=== PATIENT | male | born 1955 | race Caucasian/White ===

== ENCOUNTER 2023-11-25 10:05 | Outpatient (RCR) | payer OTHER, SELFPAY ==
[2023-11-11 10:17] VITALS: BP 122/74
[2023-11-11 11:37] LABS: % Basophils 0.9 % (0-2); % Eosinophils 0.3 % (0-6); % Immature Granulocytes 0.3 % (0-0.5); % Lymphocytes 31.5 % (20.5-51.1); % Monocytes 17.1 % (1.7-9.3); % Neutrophils 49.9 % (42.2-75.2); Absolute Monocytes 0.6 10^3/uL (0.1-0.6); Absolute Neutrophils 1.6 10^3/uL (1.4-6.5); Hematocrit 30.5 % (39.0-52.0); Hemoglobin 11.2 g/dL (13.0-18.0); Mean Corp Hgb Conc. 36.7 g/dL (33.0-37.0); Mean Corpuscular Hgb 38.4 pg (27.0-31.0); Mean Corpuscular Volume 104.5 fL (80.0-94.0); Mean Platelet Volume 9.1 fL (7.4-10.4); Nucleated Red Blood Cells % 0 % (-); Platelet Count 256 10^3/uL (130-400); Red Blood Cell Count 2.92 10^6/uL (4.70-6.10); Red Cell Dist. Width 13.1 % (11.5-14.5); White Blood Cell Count 3.2 10^3/uL (4.8-10.8)
[2023-11-11 11:57] LABS: ALT (SGPT) 16 U/L (0-50); AST (SGOT) 19 U/L (17-59); Albumin 3.8 g/dl (3.5-5.0); Alkaline Phosphatase 75 U/L (38-126); Blood Urea Nitrogen 20 mg/dl (9-20); Carbon Dioxide 31 mmol/L (22-30); Chloride 100 mmol/L (98-107); Glucose 226 mg/dl (70-99); Potassium 3.8 mmol/L (3.5-5.1); Sodium 134 mmol/L (135-145); Total Bilirubin 1.1 mg/dl (0.2-1.3); Total Protein 6.2 g/dl (6.3-8.2); eGFR > 60.00
[2023-11-18 10:01] VITALS: BP 126/80
[2023-11-18 11:04] LABS: % Basophils 0.2 % (0-2); % Eosinophils 1.3 % (0-6); % Immature Granulocytes 0.9 % (0-0.5); % Lymphocytes 20.7 % (20.5-51.1); % Monocytes 12.9 % (1.7-9.3); Absolute Eosinophils 0.1 10^3/uL (0-0.7); Absolute Monocytes 0.6 10^3/uL (0.1-0.6); Absolute Neutrophils 2.9 10^3/uL (1.4-6.5); Hematocrit 31.6 % (39.0-52.0); Hemoglobin 11.5 g/dL (13.0-18.0); Mean Corp Hgb Conc. 36.4 g/dL (33.0-37.0); Mean Corpuscular Hgb 38.3 pg (27.0-31.0); Mean Corpuscular Volume 105.3 fL (80.0-94.0); Nucleated Red Blood Cells % 0 % (-); Red Cell Dist. Width 12.7 % (11.5-14.5); White Blood Cell Count 4.6 10^3/uL (4.8-10.8)
[2023-11-18 11:25] LABS: ALT (SGPT) 14 U/L (0-50); AST (SGOT) 19 U/L (17-59); Albumin 3.7 g/dl (3.5-5.0); Alkaline Phosphatase 79 U/L (38-126); Blood Urea Nitrogen 24 mg/dl (9-20); Calcium 9.1 mg/dl (8.4-10.2); Carbon Dioxide 31 mmol/L (22-30); Chloride 100 mmol/L (98-107); Glucose 215 mg/dl (70-99); Potassium 3.9 mmol/L (3.5-5.1); Sodium 133 mmol/L (135-145); Total Bilirubin 0.9 mg/dl (0.2-1.3); Total Protein 6.3 g/dl (6.3-8.2); eGFR > 60.00
[2023-11-18 12:15] LABS: Mean Platelet Volume 10.4 fL (7.4-10.4); Platelet Count 103 10^3/uL (130-400)
[2023-11-25 10:25] VITALS: BP 141/82
[2023-11-25 11:06] LABS: Hematocrit 32.2 % (39.0-52.0); Hemoglobin 11.6 g/dL (13.0-18.0); Mean Corpuscular Hgb 37.2 pg (27.0-31.0); Mean Corpuscular Volume 103.2 fL (80.0-94.0); Mean Platelet Volume 10.3 fL (7.4-10.4); Platelet Count 99 10^3/uL (130-400); Red Blood Cell Count 3.12 10^6/uL (4.70-6.10); Red Cell Dist. Width 12.9 % (11.5-14.5)
[2023-11-25 11:10] LABS: Nucleated Red Blood Cells % 0 % (-)
[2023-11-25 11:15] LABS: ALT (SGPT) 15 U/L (0-50); AST (SGOT) 16 U/L (17-59); Albumin 3.7 g/dl (3.5-5.0); Alkaline Phosphatase 82 U/L (38-126); Blood Urea Nitrogen 24 mg/dl (9-20); Calcium 9.3 mg/dl (8.4-10.2); Carbon Dioxide 31 mmol/L (22-30); Chloride 99 mmol/L (98-107); Glucose 202 mg/dl (70-99); Potassium 3.8 mmol/L (3.5-5.1); Sodium 134 mmol/L (135-145); Total Protein 6.2 g/dl (6.3-8.2); eGFR > 60.00
[2023-11-25 11:56] LABS: Absolute Neutrophils -Man Diff 3.4 10^3/uL (1.4-6.5); Band Neutrophils 2 % (0-3); Eosinophils 2 % (0-6); Lymphocytes 18 % (20-51); Monocytes 11 % (2-9); Segmented Neutrophils 67 % (42-75)
[2023-11-25 11:57] LABS: Normal RBC Morphology Yes; Platelets Checked Yes; Total Cells Counted 100
== END 2023-11-26 08:13 | disposition home or self-care (01) ==
LOC: OID 10:05
PROVIDERS: ATTENDING PHYSICIAN Internal Medicine Hematology & Oncology; FAMILY PHYSICIAN Family Medicine
DX: C90.00 Multiple myeloma not having achieved remission (principal); F63.0 Pathological gambling; D64.81 Anemia due to antineoplastic chemotherapy; M85.80 Other specified disorders of bone density and structure, unspecified site; D63.0 Anemia in neoplastic disease
CPT/HCPCS: 36591; 80053; 85025

== ENCOUNTER → 2023-12-11 10:03 | Outpatient (REF) | payer OTHER, SELFPAY ==
[2023-12-11 09:54] LABS: % Basophils 0.9 % (0-2); % Eosinophils 0.3 % (0-6); % Lymphocytes 25.4 % (20.5-51.1); % Monocytes 17.8 % (1.7-9.3); % Neutrophils 55.6 % (42.2-75.2); Absolute Lymphocytes 0.8 10^3/uL (1.2-3.4); Absolute Monocytes 0.6 10^3/uL (0.1-0.6); Absolute Neutrophils 1.8 10^3/uL (1.4-6.5); Hematocrit 32.5 % (39.0-52.0); Hemoglobin 11.4 g/dL (13.0-18.0); Mean Corp Hgb Conc. 35.1 g/dL (33.0-37.0); Mean Corpuscular Hgb 38.3 pg (27.0-31.0); Mean Corpuscular Volume 109.1 fL (80.0-94.0); Mean Platelet Volume 8.9 fL (7.4-10.4); Platelet Count 256 10^3/uL (130-400); Red Blood Cell Count 2.98 10^6/uL (4.70-6.10); Red Cell Dist. Width 13.2 % (11.5-14.5); White Blood Cell Count 3.3 10^3/uL (4.8-10.8)
== END ==
LOC: OIDL 10:03
PROVIDERS: ATTENDING PHYSICIAN Internal Medicine Hematology & Oncology
DX: C90.00 Multiple myeloma not having achieved remission (principal); D63.0 Anemia in neoplastic disease; D64.81 Anemia due to antineoplastic chemotherapy
CPT/HCPCS: 85025

== ENCOUNTER 2023-12-23 09:52 | Outpatient (RCR) | payer OTHER, SELFPAY ==
[2023-12-10 10:19] VITALS: BP 119/71
[2023-12-10 10:31] LABS: Hematocrit 31.9 % (39.0-52.0); Hemoglobin 11.2 g/dL (13.0-18.0); Mean Corp Hgb Conc. 35.1 g/dL (33.0-37.0); Mean Corpuscular Volume 108.1 fL (80.0-94.0); Mean Platelet Volume 8.6 fL (7.4-10.4); Platelet Count 237 10^3/uL (130-400); Red Blood Cell Count 2.95 10^6/uL (4.70-6.10); Red Cell Dist. Width 13.3 % (11.5-14.5); White Blood Cell Count 3.3 10^3/uL (4.8-10.8)
[2023-12-10 11:04] LABS: % Basophils 1.5 % (0-2); % Eosinophils 0.6 % (0-6); % Immature Granulocytes 0.3 % (0-0.5); % Lymphocytes 31.9 % (20.5-51.1); % Monocytes 17.3 % (1.7-9.3); % Neutrophils 48.4 % (42.2-75.2); Absolute Basophils 0.1 10^3/uL (0-0.2); Absolute Monocytes 0.6 10^3/uL (0.1-0.6); Absolute Neutrophils 1.6 10^3/uL (1.4-6.5); Nucleated Red Blood Cells % 0 % (-)
[2023-12-10 11:18] LABS: ALT (SGPT) 15 U/L (0-50); AST (SGOT) 16 U/L (17-59); Albumin 3.8 g/dl (3.5-5.0); Alkaline Phosphatase 67 U/L (38-126); Blood Urea Nitrogen 23 mg/dl (9-20); Calcium 9.3 mg/dl (8.4-10.2); Carbon Dioxide 34 mmol/L (22-30); Chloride 98 mmol/L (98-107); Glucose 172 mg/dl (70-99); Potassium 3.7 mmol/L (3.5-5.1); Sodium 136 mmol/L (135-145); Total Bilirubin 0.9 mg/dl (0.2-1.3); Total Protein 6.4 g/dl (6.3-8.2); eGFR > 60.00
[2023-12-16 10:00] VITALS: BP 129/77
[2023-12-16 10:46] LABS: % Basophils 0.6 % (0-2); % Eosinophils 1.7 % (0-6); % Immature Granulocytes 0.6 % (0-0.5); % Lymphocytes 28.4 % (20.5-51.1); % Monocytes 14.9 % (1.7-9.3); % Neutrophils 53.8 % (42.2-75.2); Absolute Eosinophils 0.1 10^3/uL (0-0.7); Absolute Monocytes 0.5 10^3/uL (0.1-0.6); Absolute Neutrophils 1.9 10^3/uL (1.4-6.5); Hematocrit 31.2 % (39.0-52.0); Hemoglobin 11.4 g/dL (13.0-18.0); Mean Corp Hgb Conc. 36.5 g/dL (33.0-37.0); Mean Corpuscular Hgb 38.9 pg (27.0-31.0); Mean Corpuscular Volume 106.5 fL (80.0-94.0); Nucleated Red Blood Cells % 0 % (-); Platelet Count 102 10^3/uL (130-400); Red Blood Cell Count 2.93 10^6/uL (4.70-6.10); Red Cell Dist. Width 13.1 % (11.5-14.5); White Blood Cell Count 3.6 10^3/uL (4.8-10.8)
[2023-12-16 11:00] LABS: ALT (SGPT) 13 U/L (0-50); AST (SGOT) 16 U/L (17-59); Albumin 3.7 g/dl (3.5-5.0); Alkaline Phosphatase 79 U/L (38-126); Blood Urea Nitrogen 25 mg/dl (9-20); Calcium 9.3 mg/dl (8.4-10.2); Carbon Dioxide 29 mmol/L (22-30); Chloride 102 mmol/L (98-107); Glucose 118 mg/dl (70-99); Potassium 3.9 mmol/L (3.5-5.1); Sodium 133 mmol/L (135-145); Total Bilirubin 0.7 mg/dl (0.2-1.3); Total Protein 6.4 g/dl (6.3-8.2); eGFR > 60.00
[2023-12-23 10:02] VITALS: BP 137/72
[2023-12-23 11:12] LABS: % Basophils 0.5 % (0-2); % Eosinophils 1.8 % (0-6); % Immature Granulocytes 0.5 % (0-0.5); % Lymphocytes 24.3 % (20.5-51.1); % Monocytes 18.8 % (1.7-9.3); % Neutrophils 54.1 % (42.2-75.2); Absolute Eosinophils 0.1 10^3/uL (0-0.7); Absolute Monocytes 0.8 10^3/uL (0.1-0.6); Absolute Neutrophils 2.2 10^3/uL (1.4-6.5); Hematocrit 30.8 % (39.0-52.0); Hemoglobin 11.3 g/dL (13.0-18.0); Mean Corp Hgb Conc. 36.7 g/dL (33.0-37.0); Mean Corpuscular Hgb 38.8 pg (27.0-31.0); Mean Corpuscular Volume 105.8 fL (80.0-94.0); Mean Platelet Volume 10.2 fL (7.4-10.4); Nucleated Red Blood Cells % 0 % (-); Platelet Count 118 10^3/uL (130-400); Red Blood Cell Count 2.91 10^6/uL (4.70-6.10)
[2023-12-23 11:36] LABS: ALT (SGPT) 15 U/L (0-50); AST (SGOT) 17 U/L (17-59); Albumin 3.8 g/dl (3.5-5.0); Alkaline Phosphatase 83 U/L (38-126); Blood Urea Nitrogen 22 mg/dl (9-20); Carbon Dioxide 29 mmol/L (22-30); Chloride 100 mmol/L (98-107); Glucose 204 mg/dl (70-99); Potassium 3.8 mmol/L (3.5-5.1); Sodium 132 mmol/L (135-145); Total Protein 6.5 g/dl (6.3-8.2); eGFR > 60.00
== END 2023-12-24 10:24 | disposition home or self-care (01) ==
LOC: OID 09:52
PROVIDERS: ATTENDING PHYSICIAN Internal Medicine Hematology & Oncology; FAMILY PHYSICIAN Family Medicine
DX: C90.00 Multiple myeloma not having achieved remission (principal); D63.0 Anemia in neoplastic disease; D64.81 Anemia due to antineoplastic chemotherapy; M85.80 Other specified disorders of bone density and structure, unspecified site; F63.0 Pathological gambling
CPT/HCPCS: 36591; 80053; 85025

== ENCOUNTER 2024-02-03 09:49 | Outpatient (RCR) | payer OTHER, SELFPAY ==
[2024-01-06 10:15] VITALS: BP 138/72
[2024-01-06 10:55] LABS: % Basophils 1.5 % (0-2); % Eosinophils 0.6 % (0-6); % Immature Granulocytes 0.3 % (0-0.5); % Lymphocytes 31.8 % (20.5-51.1); % Monocytes 16.3 % (1.7-9.3); % Neutrophils 49.5 % (42.2-75.2); Absolute Basophils 0.1 10^3/uL (0-0.2); Absolute Lymphocytes 1.1 10^3/uL (1.2-3.4); Absolute Monocytes 0.6 10^3/uL (0.1-0.6); Absolute Neutrophils 1.7 10^3/uL (1.4-6.5); Hemoglobin 10.9 g/dL (13.0-18.0); Mean Corp Hgb Conc. 36.3 g/dL (33.0-37.0); Mean Corpuscular Hgb 38.8 pg (27.0-31.0); Mean Corpuscular Volume 106.8 fL (80.0-94.0); Mean Platelet Volume 9.2 fL (7.4-10.4); Nucleated Red Blood Cells % 0 % (-); Platelet Count 242 10^3/uL (130-400); Red Blood Cell Count 2.81 10^6/uL (4.70-6.10); Red Cell Dist. Width 12.9 % (11.5-14.5); White Blood Cell Count 3.4 10^3/uL (4.8-10.8)
[2024-01-06 11:06] LABS: ALT (SGPT) 17 U/L (0-50); AST (SGOT) 19 U/L (17-59); Alkaline Phosphatase 79 U/L (38-126); Blood Urea Nitrogen 27 mg/dl (9-20); Calcium 9.3 mg/dl (8.4-10.2); Carbon Dioxide 28 mmol/L (22-30); Chloride 102 mmol/L (98-107); Glucose 160 mg/dl (70-99); HDL Cholesterol 75 mg/dl; LDL Cholesterol, Calculated 82 mg/dl; Potassium 3.7 mmol/L (3.5-5.1); Sodium 134 mmol/L (135-145); Total Bilirubin 1.3 mg/dl (0.2-1.3); Total Cholesterol 172 mg/dl (50-199); Total Protein 6.8 g/dl (6.3-8.2); Triglyceride 76 mg/dl (10-149); Very Low Density Lipoprotein 15 mg/dl (0-30); eGFR > 60.00
[2024-01-06 12:16] LABS: Glycohemoglobin (HgbA1c) 6.2 % (4.0-5.6)
[2024-01-13 10:31] VITALS: BP 118/74
[2024-01-13 11:06] LABS: % Basophils 0.5 % (0-2); % Eosinophils 1.9 % (0-6); % Immature Granulocytes 0.5 % (0-0.5); % Lymphocytes 26.9 % (20.5-51.1); % Monocytes 15.5 % (1.7-9.3); % Neutrophils 54.7 % (42.2-75.2); Absolute Eosinophils 0.1 10^3/uL (0-0.7); Absolute Monocytes 0.6 10^3/uL (0.1-0.6); Hematocrit 31.4 % (39.0-52.0); Hemoglobin 11.1 g/dL (13.0-18.0); Mean Corp Hgb Conc. 35.4 g/dL (33.0-37.0); Mean Corpuscular Hgb 38.9 pg (27.0-31.0); Mean Corpuscular Volume 110.2 fL (80.0-94.0); Mean Platelet Volume 10.4 fL (7.4-10.4); Nucleated Red Blood Cells % 0 % (-); Platelet Count 101 10^3/uL (130-400); Red Blood Cell Count 2.85 10^6/uL (4.70-6.10); Red Cell Dist. Width 12.6 % (11.5-14.5); White Blood Cell Count 3.7 10^3/uL (4.8-10.8)
[2024-01-13 11:20] LABS: ALT (SGPT) 13 U/L (0-50); AST (SGOT) 14 U/L (17-59); Albumin 3.8 g/dl (3.5-5.0); Alkaline Phosphatase 83 U/L (38-126); Blood Urea Nitrogen 28 mg/dl (9-20); Calcium 9.8 mg/dl (8.4-10.2); Carbon Dioxide 30 mmol/L (22-30); Chloride 98 mmol/L (98-107); Glucose 203 mg/dl (70-99); Potassium 3.9 mmol/L (3.5-5.1); Sodium 134 mmol/L (135-145); Total Bilirubin 0.8 mg/dl (0.2-1.3); Total Protein 6.6 g/dl (6.3-8.2); eGFR > 60.00
[2024-02-03 10:00] VITALS: BP 120/71
[2024-02-03 10:37] LABS: % Basophils 1.3 % (0-2); % Eosinophils 0.6 % (0-6); % Immature Granulocytes 0.3 % (0-0.5); % Lymphocytes 30.3 % (20.5-51.1); % Monocytes 14.1 % (1.7-9.3); % Neutrophils 53.4 % (42.2-75.2); Absolute Monocytes 0.5 10^3/uL (0.1-0.6); Absolute Neutrophils 1.7 10^3/uL (1.4-6.5); Hematocrit 31.5 % (39.0-52.0); Hemoglobin 11.3 g/dL (13.0-18.0); Mean Corp Hgb Conc. 35.9 g/dL (33.0-37.0); Mean Corpuscular Volume 108.6 fL (80.0-94.0); Mean Platelet Volume 9.3 fL (7.4-10.4); Nucleated Red Blood Cells % 0 % (-); Platelet Count 250 10^3/uL (130-400); Red Cell Dist. Width 12.7 % (11.5-14.5); White Blood Cell Count 3.2 10^3/uL (4.8-10.8)
[2024-02-03 10:50] LABS: ALT (SGPT) 15 U/L (0-50); AST (SGOT) 17 U/L (17-59); Alkaline Phosphatase 79 U/L (38-126); Blood Urea Nitrogen 25 mg/dl (9-20); Calcium 9.3 mg/dl (8.4-10.2); Carbon Dioxide 28 mmol/L (22-30); Chloride 101 mmol/L (98-107); Glucose 212 mg/dl (70-99); Potassium 3.8 mmol/L (3.5-5.1); Sodium 134 mmol/L (135-145); Total Bilirubin 0.9 mg/dl (0.2-1.3); Total Protein 6.9 g/dl (6.3-8.2); eGFR > 60.00
== END 2024-02-04 10:05 | disposition home or self-care (01) ==
LOC: OID 09:49
PROVIDERS: ATTENDING PHYSICIAN Internal Medicine Hematology & Oncology; FAMILY PHYSICIAN Family Medicine
DX: C90.00 Multiple myeloma not having achieved remission (principal); D63.0 Anemia in neoplastic disease; D64.81 Anemia due to antineoplastic chemotherapy; M85.80 Other specified disorders of bone density and structure, unspecified site; F63.0 Pathological gambling
CPT/HCPCS: 36415; 36591; 80053; 80061; 83036; 85025; 96523

== ENCOUNTER 2024-03-03 09:43 | Outpatient (RCR) | payer OTHER, SELFPAY ==
[2024-02-10 09:54] VITALS: BP 130/73
[2024-02-10 10:37] LABS: % Basophils 0.6 % (0-2); % Eosinophils 2.2 % (0-6); % Immature Granulocytes 0.3 % (0-0.5); % Lymphocytes 27.4 % (20.5-51.1); % Monocytes 15.5 % (1.7-9.3); Absolute Eosinophils 0.1 10^3/uL (0-0.7); Absolute Lymphocytes 0.9 10^3/uL (1.2-3.4); Absolute Monocytes 0.5 10^3/uL (0.1-0.6); Absolute Neutrophils 1.7 10^3/uL (1.4-6.5); Hematocrit 30.8 % (39.0-52.0); Mean Corp Hgb Conc. 35.7 g/dL (33.0-37.0); Mean Corpuscular Hgb 38.7 pg (27.0-31.0); Mean Corpuscular Volume 108.5 fL (80.0-94.0); Mean Platelet Volume 10.3 fL (7.4-10.4); Nucleated Red Blood Cells % 0 % (-); Platelet Count 102 10^3/uL (130-400); Red Blood Cell Count 2.84 10^6/uL (4.70-6.10); Red Cell Dist. Width 12.2 % (11.5-14.5); White Blood Cell Count 3.2 10^3/uL (4.8-10.8)
[2024-02-10 10:52] LABS: ALT (SGPT) 14 U/L (0-50); AST (SGOT) 15 U/L (17-59); Albumin 3.8 g/dl (3.5-5.0); Alkaline Phosphatase 76 U/L (38-126); Blood Urea Nitrogen 22 mg/dl (9-20); Calcium 9.2 mg/dl (8.4-10.2); Carbon Dioxide 31 mmol/L (22-30); Chloride 99 mmol/L (98-107); Glucose 247 mg/dl (70-99); LDH 142 U/L (120-246); Magnesium 1.6 mg/dl (1.6-2.3); Potassium 3.8 mmol/L (3.5-5.1); Sodium 134 mmol/L (135-145); Total Bilirubin 0.9 mg/dl (0.2-1.3); Total Protein 6.8 g/dl (6.3-8.2); eGFR > 60.00
[2024-02-11 11:12] LABS: Beta-2-Microglobulin 4.3 mg/L (<=3.0)
[2024-02-12 13:00] LABS: Albumin 3.82 g/dL (3.75-5.01); Alpha 1 Globulin 0.29 g/dL (0.19-0.46); Alpha 2 Globulin 0.54 g/dL (0.48-1.05); Free Kappa Light Chains,Quant 4.77 mg/L (3.30-19.40); Free Lambda Light Chains,Quant 238.43 mg/L (5.71-26.30); IgA 4 mg/dL (68-408); IgG 1742 mg/dL (768-1632); IgM <10 mg/dL (35-263); Immunofixation Electrophoresis IFE Done; Kappa/Lambda Fr Light Ratio 0.02 (0.26-1.65); Monoclonal Protein 1.43 g/dL (<=0.00); Total Protein-Electrophoresis 6.8 g/dL (6.3-8.2)
[2024-02-17 10:00] VITALS: BP 126/63
[2024-02-17 10:50] LABS: Hematocrit 28.7 % (39.0-52.0); Hemoglobin 10.4 g/dL (13.0-18.0); Mean Corp Hgb Conc. 36.2 g/dL (33.0-37.0); Mean Corpuscular Hgb 38.1 pg (27.0-31.0); Mean Corpuscular Volume 105.1 fL (80.0-94.0); Mean Platelet Volume 10.4 fL (7.4-10.4); Platelet Count 92 10^3/uL (130-400); Red Blood Cell Count 2.73 10^6/uL (4.70-6.10); Red Cell Dist. Width 12.2 % (11.5-14.5); White Blood Cell Count 3.5 10^3/uL (4.8-10.8)
[2024-02-17 11:08] LABS: ALT (SGPT) 14 U/L (0-50); AST (SGOT) 16 U/L (17-59); Albumin 3.6 g/dl (3.5-5.0); Alkaline Phosphatase 70 U/L (38-126); Blood Urea Nitrogen 22 mg/dl (9-20); Calcium 9.4 mg/dl (8.4-10.2); Carbon Dioxide 27 mmol/L (22-30); Chloride 101 mmol/L (98-107); Glucose 206 mg/dl (70-99); Magnesium 1.6 mg/dl (1.6-2.3); Potassium 3.9 mmol/L (3.5-5.1); Sodium 137 mmol/L (135-145); Total Bilirubin 0.8 mg/dl (0.2-1.3); Total Protein 6.6 g/dl (6.3-8.2); eGFR > 60.00
[2024-02-17 12:54] LABS: Absolute Neutrophils -Man Diff 1.9 10^3/uL (1.4-6.5); Anisocytosis 1+; Band Neutrophils 0 % (0-3); Eosinophils 1 % (0-6); Lymphocytes 26 % (20-51); Monocytes 18 % (2-9); Normal RBC Morphology No; Platelets Checked Yes; Segmented Neutrophils 55 % (42-75)
[2024-02-17 12:56] LABS: Macrocytosis Slight; Total Cells Counted 100
[2024-03-03 10:16] VITALS: BP 133/66
[2024-03-03 10:32] LABS: Hematocrit 30.2 % (39.0-52.0); Hemoglobin 10.6 g/dL (13.0-18.0); Mean Corp Hgb Conc. 35.1 g/dL (33.0-37.0); Mean Corpuscular Hgb 38.7 pg (27.0-31.0); Mean Corpuscular Volume 110.2 fL (80.0-94.0); Mean Platelet Volume 8.7 fL (7.4-10.4); Platelet Count 235 10^3/uL (130-400); Red Blood Cell Count 2.74 10^6/uL (4.70-6.10); White Blood Cell Count 2.7 10^3/uL (4.8-10.8)
[2024-03-03 10:43] LABS: % Basophils 1.6 % (0-2); % Eosinophils 0.8 % (0-6); % Lymphocytes 38.5 % (20.5-51.1); % Monocytes 17.1 % (1.7-9.3); Absolute Monocytes 0.4 10^3/uL (0.1-0.6); Absolute Neutrophils 1.1 10^3/uL (1.4-6.5)
[2024-03-03 11:00] LABS: ALT (SGPT) 14 U/L (0-50); AST (SGOT) 16 U/L (17-59); Albumin 3.8 g/dl (3.5-5.0); Alkaline Phosphatase 65 U/L (38-126); Blood Urea Nitrogen 21 mg/dl (9-20); Calcium 9.2 mg/dl (8.4-10.2); Carbon Dioxide 31 mmol/L (22-30); Chloride 103 mmol/L (98-107); Glucose 194 mg/dl (70-99); Magnesium 1.7 mg/dl (1.6-2.3); Potassium 3.8 mmol/L (3.5-5.1); Sodium 138 mmol/L (135-145); Total Bilirubin 0.8 mg/dl (0.2-1.3); Total Protein 7.1 g/dl (6.3-8.2); eGFR > 60.00
== END 2024-03-03 14:05 | disposition home or self-care (01) ==
LOC: OID 09:43
PROVIDERS: ATTENDING PHYSICIAN Internal Medicine Hematology & Oncology; FAMILY PHYSICIAN Family Medicine; OTHER PHYSICIAN Internal Medicine Hematology
DX: C90.00 Multiple myeloma not having achieved remission (principal); D63.0 Anemia in neoplastic disease; D64.81 Anemia due to antineoplastic chemotherapy; M85.80 Other specified disorders of bone density and structure, unspecified site; F63.0 Pathological gambling
CPT/HCPCS: 36591; 80053; 82232; 82784; 83521; 83615; 83735; 84155; 84165; 85025; 86334; 96523

== ENCOUNTER 2024-04-01 09:45 | Outpatient (RCR) | payer OTHER, SELFPAY ==
[2024-03-09 09:55] VITALS: BP 124/75
[2024-03-09 10:29] LABS: % Basophils 0.4 % (0-2); % Eosinophils 1.8 % (0-6); % Lymphocytes 27.3 % (20.5-51.1); % Monocytes 15.5 % (1.7-9.3); Absolute Eosinophils 0.1 10^3/uL (0-0.7); Absolute Lymphocytes 0.8 10^3/uL (1.2-3.4); Absolute Monocytes 0.4 10^3/uL (0.1-0.6); Absolute Neutrophils 1.5 10^3/uL (1.4-6.5); Hematocrit 28.2 % (39.0-52.0); Hemoglobin 10.3 g/dL (13.0-18.0); Mean Corp Hgb Conc. 36.5 g/dL (33.0-37.0); Mean Corpuscular Hgb 39.6 pg (27.0-31.0); Mean Corpuscular Volume 108.5 fL (80.0-94.0); Nucleated Red Blood Cells % 0 % (-); Red Cell Dist. Width 12.6 % (11.5-14.5); White Blood Cell Count 2.8 10^3/uL (4.8-10.8)
[2024-03-09 11:01] LABS: ALT (SGPT) 13 U/L (0-50); AST (SGOT) 19 U/L (17-59); Albumin 3.8 g/dl (3.5-5.0); Alkaline Phosphatase 62 U/L (38-126); Blood Urea Nitrogen 28 mg/dl (9-20); Calcium 9.2 mg/dl (8.4-10.2); Carbon Dioxide 31 mmol/L (22-30); Chloride 101 mmol/L (98-107); Glucose 196 mg/dl (70-99); Magnesium 1.7 mg/dl (1.6-2.3); Potassium 3.8 mmol/L (3.5-5.1); Sodium 137 mmol/L (135-145); Total Bilirubin 0.9 mg/dl (0.2-1.3); Total Protein 7.2 g/dl (6.3-8.2); eGFR > 60.00
[2024-03-09 11:42] LABS: Mean Platelet Volume 10.5 fL (7.4-10.4); Platelet Count 87 10^3/uL (130-400)
[2024-03-16 10:08] VITALS: BP 119/65
[2024-03-16 10:36] LABS: Hematocrit 27.6 % (39.0-52.0); Mean Corp Hgb Conc. 36.2 g/dL (33.0-37.0); Mean Corpuscular Hgb 38.5 pg (27.0-31.0); Mean Corpuscular Volume 106.2 fL (80.0-94.0); Mean Platelet Volume 10.1 fL (7.4-10.4); Nucleated Red Blood Cells % 0 % (-); Platelet Count 92 10^3/uL (130-400); White Blood Cell Count 3.2 10^3/uL (4.8-10.8)
[2024-03-16 10:53] LABS: ALT (SGPT) 14 U/L (0-50); AST (SGOT) 16 U/L (17-59); Albumin 3.8 g/dl (3.5-5.0); Alkaline Phosphatase 64 U/L (38-126); Blood Urea Nitrogen 27 mg/dl (9-20); Calcium 9.4 mg/dl (8.4-10.2); Carbon Dioxide 33 mmol/L (22-30); Chloride 101 mmol/L (98-107); Glucose 186 mg/dl (70-99); Magnesium 1.7 mg/dl (1.6-2.3); Potassium 3.8 mmol/L (3.5-5.1); Sodium 138 mmol/L (135-145); Total Bilirubin 0.8 mg/dl (0.2-1.3); Total Protein 7.1 g/dl (6.3-8.2); eGFR > 60.00
[2024-03-16 11:44] LABS: Absolute Neutrophils -Man Diff 1.5 10^3/uL (1.4-6.5); Band Neutrophils 2 % (0-3); Eosinophils 3 % (0-6); Lymphocytes 32 % (20-51); Monocytes 18 % (2-9); Segmented Neutrophils 45 % (42-75)
[2024-03-16 11:52] LABS: Macrocytosis Slight; Normal RBC Morphology No; Platelets Checked YES
[2024-03-16 11:53] LABS: Ovalocytes FEW; Total Cells Counted 100
[2024-04-01 09:50] VITALS: BP 128/69
[2024-04-01 10:11] LABS: % Basophils 0.9 % (0-2); % Eosinophils 0.6 % (0-6); % Immature Granulocytes 0.3 % (0-0.5); % Monocytes 11.5 % (1.7-9.3); % Neutrophils 58.7 % (42.2-75.2); Absolute Lymphocytes 0.9 10^3/uL (1.2-3.4); Absolute Monocytes 0.4 10^3/uL (0.1-0.6); Absolute Neutrophils 1.9 10^3/uL (1.4-6.5); Hematocrit 29.6 % (39.0-52.0); Hemoglobin 10.6 g/dL (13.0-18.0); Mean Corp Hgb Conc. 35.8 g/dL (33.0-37.0); Mean Corpuscular Hgb 39.6 pg (27.0-31.0); Mean Corpuscular Volume 110.4 fL (80.0-94.0); Mean Platelet Volume 8.9 fL (7.4-10.4); Platelet Count 216 10^3/uL (130-400); Red Blood Cell Count 2.68 10^6/uL (4.70-6.10); White Blood Cell Count 3.2 10^3/uL (4.8-10.8)
[2024-04-01 11:59] LABS: ALT (SGPT) 15 U/L (0-50); AST (SGOT) 20 U/L (17-59); Albumin 4.2 g/dl (3.5-5.0); Alkaline Phosphatase 62 U/L (38-126); Blood Urea Nitrogen 26 mg/dl (9-20); Calcium 8.8 mg/dl (8.4-10.2); Carbon Dioxide 29 mmol/L (22-30); Chloride 100 mmol/L (98-107); Glucose 192 mg/dl (70-99); Magnesium 1.6 mg/dl (1.6-2.3); Potassium 3.8 mmol/L (3.5-5.1); Sodium 135 mmol/L (135-145); Total Bilirubin 0.7 mg/dl (0.2-1.3); Total Protein 8.4 g/dl (6.3-8.2); eGFR > 60.00
== END 2024-04-02 09:19 | disposition home or self-care (01) ==
LOC: OID 09:45
PROVIDERS: ATTENDING PHYSICIAN Internal Medicine Hematology & Oncology; FAMILY PHYSICIAN Family Medicine; OTHER PHYSICIAN Internal Medicine Hematology
DX: C90.00 Multiple myeloma not having achieved remission (principal); D63.0 Anemia in neoplastic disease; D64.81 Anemia due to antineoplastic chemotherapy; M85.80 Other specified disorders of bone density and structure, unspecified site; F63.0 Pathological gambling
CPT/HCPCS: 36591; 80053; 83735; 85025

== ENCOUNTER 2024-04-13 09:46 | Outpatient (RCR) | payer OTHER, SELFPAY ==
[2024-04-13 10:01] VITALS: BP 132/71
[2024-04-13 11:07] LABS: % Basophils 0.5 % (0-2); % Eosinophils 0.5 % (0-6); % Immature Granulocytes 0.5 % (0-0.5); % Lymphocytes 23.6 % (20.5-51.1); % Monocytes 8.6 % (1.7-9.3); % Neutrophils 66.3 % (42.2-75.2); Absolute Monocytes 0.4 10^3/uL (0.1-0.6); Absolute Neutrophils 2.9 10^3/uL (1.4-6.5); Hematocrit 28.3 % (39.0-52.0); Hemoglobin 10.3 g/dL (13.0-18.0); Mean Corp Hgb Conc. 36.4 g/dL (33.0-37.0); Mean Corpuscular Hgb 39.2 pg (27.0-31.0); Mean Corpuscular Volume 107.6 fL (80.0-94.0); Mean Platelet Volume 9.2 fL (7.4-10.4); Nucleated Red Blood Cells % 0 % (-); Platelet Count 202 10^3/uL (130-400); Red Blood Cell Count 2.63 10^6/uL (4.70-6.10); Red Cell Dist. Width 12.5 % (11.5-14.5); White Blood Cell Count 4.4 10^3/uL (4.8-10.8)
[2024-04-13 11:16] LABS: ALT (SGPT) 16 U/L (0-50); AST (SGOT) 21 U/L (17-59); Albumin 4.3 g/dl (3.5-5.0); Alkaline Phosphatase 65 U/L (38-126); Blood Urea Nitrogen 21 mg/dl (9-20); Calcium 9.2 mg/dl (8.4-10.2); Carbon Dioxide 30 mmol/L (22-30); Chloride 99 mmol/L (98-107); Glucose 187 mg/dl (70-99); Magnesium 1.7 mg/dl (1.6-2.3); Potassium 3.5 mmol/L (3.5-5.1); Sodium 137 mmol/L (135-145); Total Bilirubin 0.7 mg/dl (0.2-1.3); Total Protein 8.9 g/dl (6.3-8.2); eGFR > 60.00
[2024-04-14 10:51] LABS: Beta-2-Microglobulin 7.6 mg/L (<=3.0)
[2024-04-15 11:08] LABS: Albumin 4.25 g/dL (3.75-5.01); Alpha 2 Globulin 0.65 g/dL (0.48-1.05); Free Kappa Light Chains,Quant 1.47 mg/L (3.30-19.40); Free Lambda Light Chains,Quant 614.89 mg/L (5.71-26.30); IgA 3 mg/dL (68-408); IgG 4116 mg/dL (768-1632); IgM <10 mg/dL (35-263); Immunofixation Electrophoresis IFE Done; Kappa/Lambda Fr Light Ratio <0.01 (0.26-1.65); Monoclonal Protein 3.16 g/dL (<=0.00); Total Protein-Electrophoresis 9.1 g/dL (6.3-8.2)
== END 2024-05-06 23:59 | disposition home or self-care (01) ==
LOC: OID 09:46
PROVIDERS: ATTENDING PHYSICIAN Internal Medicine Hematology & Oncology; PRIMARYCARE PHYSICIAN Family Medicine; REFERRING PHYSICIAN Internal Medicine Hematology
DX: C90.00 Multiple myeloma not having achieved remission (principal); D63.0 Anemia in neoplastic disease; D64.81 Anemia due to antineoplastic chemotherapy; M85.80 Other specified disorders of bone density and structure, unspecified site; F63.0 Pathological gambling
CPT/HCPCS: 36591; 80053; 82232; 82784; 83521; 83735; 84155; 84165; 85025; 86334

== ENCOUNTER 2024-05-12 12:34 | Outpatient (RCR) | payer OTHER, SELFPAY ==
[2024-05-12 13:04] VITALS: BP 107/64
[2024-05-12 13:26] LABS: % Basophils 0.3 % (0-2); % Eosinophils 0.6 % (0-6); % Immature Granulocytes 0.3 % (0-0.5); % Lymphocytes 20.8 % (20.5-51.1); % Monocytes 11.4 % (1.7-9.3); % Neutrophils 66.6 % (42.2-75.2); Absolute Lymphocytes 0.7 10^3/uL (1.2-3.4); Absolute Monocytes 0.4 10^3/uL (0.1-0.6); Absolute Neutrophils 2.3 10^3/uL (1.4-6.5); Hematocrit 25.8 % (39.0-52.0); Mean Corp Hgb Conc. 34.9 g/dL (33.0-37.0); Mean Corpuscular Hgb 38.1 pg (27.0-31.0); Mean Corpuscular Volume 109.3 fL (80.0-94.0); Mean Platelet Volume 8.8 fL (7.4-10.4); Platelet Count 145 10^3/uL (130-400); Red Blood Cell Count 2.36 10^6/uL (4.70-6.10); Red Cell Dist. Width 12.6 % (11.5-14.5); White Blood Cell Count 3.5 10^3/uL (4.8-10.8)
[2024-05-12 14:56] LABS: ALT (SGPT) 19 U/L (0-50); AST (SGOT) 24 U/L (17-59); Albumin 3.9 g/dl (3.5-5.0); Alkaline Phosphatase 66 U/L (38-126); Blood Urea Nitrogen 25 mg/dl (9-20); Calcium 9.5 mg/dl (8.4-10.2); Carbon Dioxide 30 mmol/L (22-30); Chloride 100 mmol/L (98-107); Glucose 189 mg/dl (70-99); Magnesium 1.7 mg/dl (1.6-2.3); Potassium 3.7 mmol/L (3.5-5.1); Sodium 135 mmol/L (135-145); Total Bilirubin 0.6 mg/dl (0.2-1.3); Total Protein 9.5 g/dl (6.3-8.2)
== END 2024-05-13 09:34 | disposition home or self-care (01) ==
LOC: OID 12:34
PROVIDERS: ATTENDING PHYSICIAN Internal Medicine Hematology & Oncology; PRIMARYCARE PHYSICIAN Family Medicine; REFERRING PHYSICIAN Internal Medicine Hematology
DX: C90.00 Multiple myeloma not having achieved remission (principal); D64.81 Anemia due to antineoplastic chemotherapy; D63.0 Anemia in neoplastic disease; M85.80 Other specified disorders of bone density and structure, unspecified site; F63.0 Pathological gambling
CPT/HCPCS: 36591; 80053; 83735; 85025

== ENCOUNTER 2024-05-26 09:50 | Outpatient (RCR) | payer OTHER, SELFPAY ==
[2024-05-26 10:52] LABS: % Basophils 0.2 % (0-2); % Eosinophils 0.2 % (0-6); % Immature Granulocytes 0.4 % (0-0.5); % Lymphocytes 15.3 % (20.5-51.1); % Monocytes 11.4 % (1.7-9.3); % Neutrophils 72.5 % (42.2-75.2); Absolute Lymphocytes 0.8 10^3/uL (1.2-3.4); Absolute Monocytes 0.6 10^3/uL (0.1-0.6); Absolute Neutrophils 3.6 10^3/uL (1.4-6.5); Hematocrit 25.4 % (39.0-52.0); Mean Corp Hgb Conc. 35.4 g/dL (33.0-37.0); Mean Corpuscular Hgb 39.3 pg (27.0-31.0); Mean Corpuscular Volume 110.9 fL (80.0-94.0); Mean Platelet Volume 8.9 fL (7.4-10.4); Platelet Count 158 10^3/uL (130-400); Red Blood Cell Count 2.29 10^6/uL (4.70-6.10); Red Cell Dist. Width 14.3 % (11.5-14.5); White Blood Cell Count 4.9 10^3/uL (4.8-10.8)
[2024-05-26 12:20] LABS: ALT (SGPT) 23 U/L (0-50); AST (SGOT) 26 U/L (17-59); Albumin 3.9 g/dl (3.5-5.0); Alkaline Phosphatase 66 U/L (38-126); Blood Urea Nitrogen 17 mg/dl (9-20); Calcium 9.1 mg/dl (8.4-10.2); Carbon Dioxide 30 mmol/L (22-30); Chloride 100 mmol/L (98-107); Glucose 173 mg/dl (70-99); LDH 210 U/L (120-246); Magnesium 1.7 mg/dl (1.6-2.3); Potassium 3.8 mmol/L (3.5-5.1); Sodium 135 mmol/L (135-145); Total Bilirubin 0.6 mg/dl (0.2-1.3); Total Protein 10.2 g/dl (6.3-8.2); eGFR 54.07
[2024-05-29 11:19] LABS: Beta-2-Microglobulin 17.8 mg/L (<=3.0)
[2024-05-30 12:46] LABS: Albumin 4.25 g/dL (3.75-5.01); Alpha 1 Globulin 0.31 g/dL (0.19-0.46); Alpha 2 Globulin 0.56 g/dL (0.48-1.05); Free Kappa Light Chains,Quant 1.06 mg/L (3.30-19.40); Free Lambda Light Chains,Quant 1155.05 mg/L (5.71-26.30); IgA <2 mg/dL (68-408); IgG 5608 mg/dL (768-1632); IgM <10 mg/dL (35-263); Immunofixation Electrophoresis IFE Done; Kappa/Lambda Fr Light Ratio <0.01 (0.26-1.65); Monoclonal Protein 5.17 g/dL (<=0.00)
== END 2024-06-06 23:59 | disposition home or self-care (01) ==
LOC: OID 09:50
PROVIDERS: ATTENDING PHYSICIAN Internal Medicine Hematology; PRIMARYCARE PHYSICIAN Family Medicine
DX: C90.00 Multiple myeloma not having achieved remission (principal); D63.1 Anemia in chronic kidney disease; D64.81 Anemia due to antineoplastic chemotherapy; M85.80 Other specified disorders of bone density and structure, unspecified site
CPT/HCPCS: 36591; 80053; 82232; 82784; 83521; 83615; 83735; 84155; 84165; 85025; 86334

== ENCOUNTER 2024-08-25 10:37 | Outpatient (RCR) | payer OTHER, SELFPAY ==
[2024-08-25 11:05] VITALS: BP 113/77
[2024-08-25 14:35] LABS: Blood Urea Nitrogen 18 mg/dl (9-20); Calcium 8.2 mg/dl (8.4-10.2); Carbon Dioxide 30 mmol/L (22-30); Chloride 95 mmol/L (98-107); Glucose 131 mg/dl (70-99); Magnesium 1.8 mg/dl (1.6-2.3); Potassium 4.3 mmol/L (3.5-5.1); Sodium 134 mmol/L (135-145); eGFR > 60.00
== END 2024-09-05 23:59 | disposition home or self-care (01) ==
LOC: OID 10:37
PROVIDERS: ATTENDING PHYSICIAN Internal Medicine Hematology; PRIMARYCARE PHYSICIAN Family Medicine
DX: C90.02 Multiple myeloma in relapse (principal)
CPT/HCPCS: 36591; 80048; 83735

== ENCOUNTER 2024-10-01 11:55 | Outpatient (RCR) | payer OTHER, SELFPAY | END 2024-10-01 23:59 | disposition home or self-care (01) | LOC: ROT 11:55 | PROVIDERS: ATTENDING PHYSICIAN Internal Medicine Hematology; FAMILY PHYSICIAN Family Medicine | DX: G20.A1 Parkinson's disease without dyskinesia, without mention of fluctuations (principal); C90.00 Multiple myeloma not having achieved remission; Z73.6 Limitation of activities due to disability; R26.2 Difficulty in walking, not elsewhere classified; R13.12 Dysphagia, oropharyngeal phase; R26.89 Other abnormalities of gait and mobility; I10 Essential (primary) hypertension | CPT/HCPCS: 92526; 92610; 97110; 97112; 97116; 97163; 97167; 97530; 97535 ==

== ENCOUNTER → 2024-10-02 09:43 | Outpatient (REF) | payer OTHER, SELFPAY | LOC: RST 09:43 | PROVIDERS: ATTENDING PHYSICIAN Family Medicine | DX: G20.A1 Parkinson's disease without dyskinesia, without mention of fluctuations (principal); R13.10 Dysphagia, unspecified | CPT/HCPCS: 74230; 92611 ==

== ENCOUNTER 2024-10-02 19:00 | Inpatient (IN) | payer OTHER, SELFPAY ==
[2024-10-02 13:39] VITALS: BP 133/87
--- NOTE | 2024-10-02 15:44 | ED.GENMED ---
History of Present Illness
General
Chief Complaint: Abnormal Lab Value
Source: patient
Exam Limitations: none
Time Seen by Provider: 10/02/24 15:43
Nursing documentation reviewed up to this point in time: agreed with
History of Present Illness
History of Present Illness:
69 yo male presents to the emergency department complaining of weakness, diarrhea. Patient also has had chest pain, of unclear duration. He has Parkinson's. This is likely medication derived. He was at the infusion center today and his calcium
was noted to be 5.7.
Past History
Past History
ED Past Medical History: HTN
ED Past Surgical History: Orthopedic (Surg on L fifth finger) and Tonsilectomy
Social History
Tobacco: Smoker (Cigar weekly)
Alcohol: Occasional
Personal:
Living: with family
Phy Exam
Physical Exam
Physical Exam:
Physical Exam
General: no apparent distress, not acutely ill
Neck: supple. no meningeal signs. normal posterior pharynx
Heart: s1/s2 regular rate and rhythm, no murmur. equal radial
pulses.
HEENT: Pupils equal round reactive to light, EOMI
Lungs: no acute respiratory distress. clear bilaterally port right upper chest
Abdomen: normal bowel sounds. not tender. no CVAT
Neuro: alert and oriented. no focal neurological deficits cranial nerves II through XII intact
Skin: no rash
Psychiatric: well kept. interactive and cooperative
Extremities: no edema. no calf tenderness. negative homans. good distal pulses
Course
Orders/Labs/Results
Orders:
Orders
10/02/24 13:44
Electrocardiogram (*1) Urgent
Reason for Study: QTc Monitoring
EKG- Treatment ONCE
10/02/24 Dinner
Low Lactose
At Your Request: Limited Participation
10/02/24 16:29
Calcium, Ionized [Ionized Calcium] Urgent
Magnesium Urgent
Troponin I Urgent
10/02/24 17:00
Calcium Gluconate 4,000 mg 0.9% Sodium Chloride 250 ml [Nss] 250 ml IV ONCE
10/02/24 17:11
Carbidopa/Levodopa [Sinemet 25-100] 1 tablet PO NOW STA
10/02/24 17:41
Magnesium Sulfate 2 Gram/50 ml [Magnesium Sulfate] 2 gram in 50 ml IV NOW
10/02/24 18:22
Admit/Transfer Patient As Directed
Co-Sign Provider:
Level of Care: Inpatient admission
Assign to:: Telemetry
Physician / Group: hospitalist-Anjana
Diagnosis: hypomag, hypocalcemia
Reason for Telemetry: Arrhythmia
Date to Stop Telemetry: 10/05/24
Time to Stop Telemetry: 11:00
Reason for Hospitalization: IV mag and IV calcium needed
Expected length of stay greater than two midnights?: Yes
ELOS- Estimated Length of Stay in days: 4
I certify the patient meets the requirements for IP care: Yes
PRN Pain Medication Management As Directed
May give lesser potent ordered pain med per pt: Yes
preference::
Protocol:: Medication orders for pain may be administered in a
manner that supports deferring to patient preference
when the pt is:
- Requesting an ordered lesser potent pain medication.
Least to most potent pain medications are defined
as: acetaminophen < NSAID < tramadol < opioids
(morphine, oxycodone, hydromorphone).
- Requesting a lesser dose of the same medication IF
ORDERED.
- Requesting a less intrusive route of administration
if both routes are prescribed by the provider (PO <
IV).
10/02/24 18:24
Code Status As Directed
Resuscitation Status: Full Code
10/02/24 19:00
Sulfamethox./Trimethoprim Ds [Bactrim Ds 800 mg/160 mg] 1 tablet PO MoWeFr@0800
10/02/24 19:38
Acetaminophen [Tylenol] 650 mg PO Q4HPRN PRN
Loperamide [Imodium] 2 mg PO Q2HPRN PRN
10/02/24 19:38
Activity As Directed
Activity Level: Out of Bed-Early Mobility
Vital Signs As Directed
Frequency: Per unit guidelines
Ot Eval And Treat Routine
Pt Eval And Treat Routine
Activity Level: Out of Bed-Early Mobility
DX Deep Vein Thrombosis Video Routine
10/02/24 20:00
Acyclovir [Zovirax] 400 mg PO BID
Mirtazapine [Remeron] 7.5 mg PO DAILY@1999
Potassium Chloride [KCl] 20 meq PO BID
10/02/24 22:00
Calcium 300mg(Ca. Carb. 750mg) [Tums Ex (Extra Strength) Chewable Tablet] 300 mg PO TID
10/03/24 06:00
Basic Metabolic Panel IN AM
Complete Blood Count/No Diff IN AM
Magnesium IN AM
TSH IN AM
Vitamin B12 IN AM
10/03/24 07:00
Carbidopa/Levodopa [Sinemet 25-100] 1 tablet PO TID@0700,1100,1700
10/03/24 08:00
Cholecalciferol (Vitamin D3) [VITAMIN D3 (cholecalciferol)] 25 mcg PO DAILY
Cyanocobalamin [Vitamin B-12] 1,000 mcg PO DAILY
Famotidine [Pepcid] 20 mg PO DAILY
10/03/24 18:00
Enoxaparin Sodium [Lovenox] 30 mg SC QPM
10/05/24 11:00
DC Protocol for Telemetry ONCE
Abnormal Lab Results
10/02/24
16:29
Ionized Calcium 0.78 L mMOL/L
(1.15-1.33)
Magnesium 1.1 L mg/dl
(1.6-2.3)
Vital Signs
Initial and Last Documented VS:
Initial Vital Signs
Temp Pulse Resp BP Pulse Ox
97.9 F 104 18 133/87 99
10/02/24 13:39 10/02/24 13:39 10/02/24 13:39 10/02/24 13:39 10/02/24 13:39
Last Documented Vital Signs
Temp Pulse Resp BP Pulse Ox
98.2 F 99 14 161/99 98
10/02/24 19:45 10/02/24 19:45 10/02/24 19:45 10/02/24 19:45 10/02/24 19:45
MDM/Problems Addressed
Differential Diagnosis Includes:
Hypocalcemia, hypomagnesemia, ACS
MDM/Problems Addressed:
69-year-old male with hypomagnesemia, hypocalcemia, chest pain. Initial troponin normal. Calcium and magnesium repletion initiated. Admit for further treatment of calcium and magnesium, and further evaluation of chest pain.
Chronic conditions affecting care: Neurological disorder (Parkinson, neuropathy, ICANS) and Cancer
Acute Exacerbation and/or Progression of Chronic Illness: Cancer
*Pulse Oximetry
Patient hypoxic: no
*EKG
Interpreted by ED Provider?: Yes
EKG Intrepretation Date: 10/02/24
EKG Intrepretation Time: 13:51
Interpretation: abnormal
Heart Rate: 95
Rate: normal
Rhythm: sinus
[place]: normal axis
Interval: normal interval
QRS Pattern: normal QRS
Ischemia: non-specific ST changes
*Boom Stick Worker Interpretation
Rate: normal
Interpretation: normal
Heart Rate: 94
Rhythm: sinus
*Critical Care Note
Total Time (30-74mins, 75-104mins- exclusive of procedures): 30
comment:
Critical care statement: A total of 30 minutes of critical care time was provided for this patient. This includes management of unstable vital signs, evaluation of the patient at bedside, reviewing the patient's pertinent medical records, discussion
with consultants, review of old EKGs and review of pertinent medical records. This time with separate from time utilized to perform the aforementioned documented procedures
Data Reviewed
Review of Other/Old Records Reveals: Labs (Labs from earlier today ordered by oncology show calcium 5.7)
Source: records
Patient Management
Social determinants of health affecting care: Living situation
Discussion with other providers: Hospitalist and Demonstrator Sales (Nephrology recommends 4 g calcium gluconate)
Escalation/DeEscalation of care consider admission/obs:
Admission indicated
ED Attending Note
-
Portions of this chart may have been created with voice recognition software.� Occasional wrong word or��sound alike� substitutions may have occurred due to the inherent limitations of voice recognition software.
Discharge Plan
Departure
Patient Disposition: Admit
Date of Disposition: 10/02/24
Time of Disposition: 17:42
Admit to: IMU
Presentation/result/management discussed w/ accepting MD/DO: Hospitalist
Patient with high blood pressure during this ER visit?: Yes
Condition: Fair
Discharge Problem:
Hypocalcemia, Hypomagnesemia, Chest pain
Interventions
Interventions:
*Risk Screen - Suicide Last Done: 10/02/24 21:00
*General Assessment Last Done: 10/02/24 16:36
*Neglect/Abuse Screening Last Done: 10/02/24 16:36
ED- Fall Risk Assessment Last Done: 10/02/24 17:56
*ED COVID-19 Vaccine History Last Done: 10/02/24 21:00
*Nursing Disposition Last Done: 10/02/24 19:28
Discharge Date and Time
Discharge Date/Time: 10/02/24 19:46
[2024-10-02 16:36] VITALS: BMI 26.9
[2024-10-02 16:50] LABS: Ionized Calcium 0.78 mMOL/L (1.15-1.33)
[2024-10-02 17:00] VITALS: BP 136/89
[2024-10-02] MEDS: SINEMET 25-100 1 TABLET PO (17:17)
[2024-10-02] MEDS: CALCIUM GLUCONATE 290 MG IV (17:18)
[2024-10-02 17:27] LABS: Magnesium 1.1 mg/dl (1.6-2.3)
[2024-10-02 17:31] LABS: Troponin I 0.017 ng/ml
[2024-10-02] MEDS: MAGNESIUM SULFATE 50 IV (17:52)
[2024-10-02 18:00] VITALS: BP 159/92
--- NOTE | 2024-10-02 18:28 | HPS.HSE ---
Family Physician
-
Family Physician: Mikey Garcia
Chief Complaint
-
worsening cognitive issues
History of Present Illness
Patient is a 69-year-old male with a history of multiple myeloma who received CAR-T treatment in 2023 and developed ICANS. 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 There was also some question of either
Parkinson's disease or parkinsonian is him from the CAR-T treatment. 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 She asked for labs to be drawn at the infusion center and he was found
to have low magnesium and low calcium. He was then referred to the emergency room for admission.
In retrospect, patient has been having a numb leg, chronic diarrhea for the past month (during which time norovirus was also isolated and found which has resolved but the chronic diarrhea has not). He has no abdominal pain but is complaining of
some indigestion. He does take Imodium daily. He was here for routine swallow study and evaluation and had the labs drawn while he was here at the hospital. He will be admitted based on the electrolyte abnormalities.
Medical History
Past Medical History
Past Medical History: Reports Other
Additional Past Medical History:
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
Gastroesophageal reflux disease
Essential hypertension
Past Surgical History: Reports Other
Additional Past Surgical History:
Orthopedic surgery
Tonsillectomy
Social History
Tobacco: Smoker (Weekly cigar)
Alcohol: Occasional
Drug: None
Personal:
Living: With Family
Family History
Family History: Other (Daughter with Crohn's disease)
Allergies / Home Medications
Allergies reflects when Allergies were last updated in [facility].
Home Medications with original date entered in [facility]
Allergy/Medication List:
Allergies
Allergy/AdvReac Type Severity Reaction Status Date / Time
ondansetron [From Zofran] Allergy Intermediate confusion Verified 10/02/24 11:52
Cephalosporins Allergy Unknown Verified 10/02/24 11:52
penicillin G Allergy via Verified 10/02/24 11:52
allergy
testing
Penicillins Allergy via Verified 10/02/24 11:52
allergy
testing
Home Medications
denosumab 120 mg/1.7 mL (70 mg/mL) subcutaneous solution (Xgeva) 120 mg SC QMONTH 02/03/24
cholecalciferol (vitamin D3) 25 mcg (1,000 unit) capsule (Vitamin D3) 25 mcg PO DAILY 08/25/24
acyclovir 400 mg tablet 400 mg PO BID 10/02/24
calcium carbonate 300 mg PO TID 10/02/24
carbidopa 25 mg-levodopa 100 mg tablet (Sinemet) 1 tab PO TID@0700,1100,1700 10/02/24
cyanocobalamin (vitamin B-12) 1,000 mcg tablet 1,000 mcg PO DAILY 10/02/24
famotidine 20 mg tablet (Pepcid) 20 mg PO DAILY 10/02/24
loperamide 2 mg capsule 2 mg PO Q2HPRN PRN diarrhea 10/02/24
mirtazapine 7.5 mg tablet 7.5 mg PO HS 10/02/24
potassium chloride 20 mEq tablet,extended release(part/cryst) (Klor-Con M) 20 meq PO BID 10/02/24
sulfamethoxazole 800 mg-trimethoprim 160 mg tablet (Bactrim DS) 1 tab PO MOWEFR 10/02/24
Review of Systems
-
History Source: Patient and Family
Constitutional: Reports Weight Loss; Denies Fever or Chills
EENT: Reports No Symptoms
Respiratory: Reports No Symptoms
Cardiac: Reports No Symptoms
Abdomen/GI: Reports Other (Indigestion)
: Reports No Symptoms
Musculoskeletal: Reports No Symptoms
Skin: Reports No Symptoms
Neurological: Reports Other (Parkinson-like features)
Endocrine: Reports No Symptoms
Hematologic/Lymphatic: Reports No Symptoms
Psych: Reports No Symptoms
Physical Exam
Vital Signs
Vital Signs
Temp Pulse Resp BP Pulse Ox
97.9 F 96 13 133/87 99
10/02/24 13:39 10/02/24 16:36 10/02/24 16:36 10/02/24 13:39 10/02/24 16:36
Physical Exam
General: No Apparent Distress and Appears Chronically Ill
HEENT: NormoCephalic and Anicteric; No Oxygen
Respiratory: Clear; No Wheezes, Rales, Rhonchi or Crackles
Cardiac: S1/S2 and Regular Rhythm
GI: Soft, Non Tender, Non Distended and Normal Bowel Sounds
Musculoskeletal: No Clubbing and No Cyanosis; No No Edema (2-3+ pitting edema bilaterally lower extremities)
Skin: Warm
Neuro: Awake and Alert
Psych: Calm
Laboratory Results
-
Laboratory Results
Troponin I 0.017 ng/ml 10/02/24 16:29
Impression/Plan
-
Patient is a 69-year-old male
Hypocalcemia/hypomagnesemia--possibly some contribution from diarrhea--although could be related to chemo/immunotherapy--admit to telemetry--replete calcium and magnesium--follow labs--consult PT/OT
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
unclear if Parkinson's disease is primary and exacerbated by CAR-T or parkinsonian symptoms from CAR-T treatment--follows at [facility]--is on prophylactic acyclovir, and Bactrim--will continue both--we will continue carbidopa levodopa
Diarrhea x 1 month--stool studies were done through [facility] and were negative--patient and both had norovirus approximately 10 days ago which has resolved--he also gets diarrhea from lactose as he is lactose intolerant--replete
calcium and magnesium and see if diarrhea improves--consider GI consult
B12 deficiency--continue B12 supplementation
DVT prophylaxis--Lovenox
CODE STATUS--full code
[2024-10-02 19:00] VITALS: BP 148/92
[2024-10-02 19:45] VITALS: BP 161/99
[2024-10-02] MEDS: ZOVIRAX 400 MG PO (20:47)
[2024-10-02] MEDS: REMERON 7.5 MG PO (20:47)
[2024-10-02] MEDS: KCL 20 MEQ PO (20:47)
[2024-10-02] MEDS: BACTRIM DS 800 MG/160 MG 1 TABLET PO (20:50)
--- NOTE | 2024-10-02 21:00 | PTCARENOTE ---
Received patient from ED accompanied by spouse. Patient was transferred directly from the stretcher to the bed. Patient AAOx3, slow to speak, Parkinson tremors, spouse helped with admission. Assessment completed. VSS. Normal Sinus/Sinus tach on the
monitor. Patient oriented to the unit. Call peralta in reach. Bed alarm placed for safety.
[2024-10-02] MEDS: TUMS EX (EXTRA STRENGTH) CHEWABLE TABLET 300 MG PO (21:43)
[2024-10-02 23:49] VITALS: BP 137/81
[2024-10-03] VITALS (8 sets, daily range): BP systolic 117–149; BP diastolic 61–96; PULSE 94–115; O2SAT 96–98
[2024-10-03 06:07] LABS: Hematocrit 32.9 % (39.0-52.0); Hemoglobin 10.6 g/dL (13.0-18.0); Mean Corp Hgb Conc. 32.2 g/dL (33.0-37.0); Mean Corpuscular Hgb 31.7 pg (27.0-31.0); Mean Corpuscular Volume 98.5 fL (80.0-94.0); Mean Platelet Volume 9.3 fL (7.4-10.4); Platelet Count 57 10^3/uL (130-400); Red Blood Cell Count 3.34 10^6/uL (4.70-6.10); Red Cell Dist. Width 14.9 % (11.5-14.5); White Blood Cell Count 4.8 10^3/uL (4.8-10.8)
[2024-10-03 06:49] LABS: Blood Urea Nitrogen 17 mg/dl (9-20); Calcium 6.1 mg/dl (8.4-10.2); Carbon Dioxide 22 mmol/L (22-30); Chloride 105 mmol/L (98-107); Estimated Creatinine Clearance 108 ml/min; Glucose 71 mg/dl (70-99); Magnesium 1.5 mg/dl (1.6-2.3); Potassium 3.9 mmol/L (3.5-5.1); Sodium 134 mmol/L (135-145); TSH 0.72 uIU/ml (0.47-4.68); eGFR > 60.00
[2024-10-03 07:08] LABS: Vitamin B12 > 1000 pg/ml (239-931)
[2024-10-03] MEDS: MAGNESIUM SULFATE 100 IV (07:40)
[2024-10-03] MEDS: CALCIUM GLUCONATE 290 MG IV (08:03)
[2024-10-03] MEDS: SINEMET 25-100 1 TABLET PO ×3 (08:25→17:12)
[2024-10-03] MEDS: VITAMIN B-12 1000 MCG PO (08:26)
[2024-10-03] MEDS: VITAMIN D3 (cholecalciferol) 25 MCG PO (08:26)
[2024-10-03] MEDS: PEPCID 20 MG PO (08:26)
[2024-10-03] MEDS: KCL 20 MEQ PO ×2 (08:26→19:47)
[2024-10-03] MEDS: ZOVIRAX 400 MG PO ×2 (08:26→19:48)
[2024-10-03] MEDS: TUMS EX (EXTRA STRENGTH) CHEWABLE TABLET 300 MG PO ×3 (08:26→21:23)
--- NOTE | 2024-10-03 12:01 | CM ---
Addendum entered by Kelsi Mcdaniel RN 10/03/24 12:11:
Patient has private caregivers M-F from 9am-3p and is looking for help on w/e's for four hours each day. Patient's spouse working with [employer] agency.
Original Note:
Reviewed the chart notes and spoke with the patient and his spouse at the bedside. Patient admitted for low magnesium and low calcium. The patient resides with his spouse in a to story home with no steps to enter. There is a stair glide to the
second level. The patient has a rolling walker, wheelchair, shower chair, and a hospital bed. Thepatient confirmed his pharmacy of choice is the [facility]. The patient is current with [facility] and request a referral be
sent for PT/OT/ST/VN. Referral sent via [facility]. continues to be available to patient/family and is monitoring medical plan for needs at discharge.
Plan: Discharge to home with [facility] services.
--- NOTE | 2024-10-03 13:35 | W.PN.HOSP.TC ---
Today's Communication/Plan
-
anticipate d/c tomorrow if labs improved
Assessment / Plan
Assessment / Plan
pt is a 69 year old male
Hypocalcemia/hypomagnesemia--possibly some contribution from diarrhea--although could be related to chemo/immunotherapy---replete calcium and magnesium--follow labs-- PT/OT
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
unclear if Parkinson's disease is primary and exacerbated by CAR-T or parkinsonian symptoms from CAR-T treatment--follows at [facility]--is on prophylactic acyclovir, and Bactrim--will continue both--we will continue carbidopa levodopa
Diarrhea x 1 month--stool studies were done through [facility] and were negative--patient and both had norovirus approximately 10 days ago which has resolved--he also gets diarrhea from lactose as he is lactose intolerant--replete
calcium and magnesium and see if diarrhea improves--consider GI consult
B12 deficiency--continue B12 supplementation
DVT prophylaxis--Lovenox
CODE STATUS--full code
Anticipated Discharge: Within 24 hours
Subjective/Interval History
-
Date of Service: October 03, 2024
pt sitting in the chair
Objective Data
-
Labs:
Laboratory Results
10/03/24
05:35
WBC 4.8
Hgb 10.6 L
Hct 32.9 L
Plt Count 57 L
Sodium 134 L
Potassium 3.9
Chloride 105
Carbon Dioxide 22
BUN 17
Creatinine 0.7
Glucose 71
Calcium 6.1 L*
Vital Signs:
max temp for 24 hours
10/03/24
07:00
Temp 98.3 F
Vital Signs
Temp Pulse Resp BP Pulse Ox
97.6 F 108 16 125/79 97
10/03/24 11:07 10/03/24 11:07 10/03/24 11:07 10/03/24 11:07 10/03/24 11:07
I&O
10/02/24 10/03/24 10/04/24
06:59 06:59 06:59
Intake Total 240 / 240
Output Total 275 / 275
Balance -35 / -35
Review of Systems
-
All other systems: Reviewed and negative
Physical Exam
-
General: Well Developed, Well Nourished and Appears Chronically Ill
HEENT: Normocephalic and Atraumatic
Respiratory: Clear to Auscultation; Negative Wheezes, Rales or Rhonchi
Cardiac: Regular Rhythm and S1/S2; Negative Murmur
GI: Soft, Nontender, Nondistended and Normal Bowel Sounds
Musculoskeletal: No Clubbing, No Cyanosis and No Edema
Skin: Warm
Neuro: Awake
Psych: Calm
[2024-10-03] MEDS: LOVENOX 30 MG SC (17:12)
[2024-10-03] MEDS: REMERON 7.5 MG PO (19:47)
[2024-10-04 04:57] LABS: Ionized Calcium 0.98 mMOL/L (1.15-1.33)
[2024-10-04 05:29] LABS: Hematocrit 31.6 % (39.0-52.0); Hemoglobin 10.6 g/dL (13.0-18.0); Mean Corp Hgb Conc. 33.5 g/dL (33.0-37.0); Mean Corpuscular Hgb 32.9 pg (27.0-31.0); Mean Corpuscular Volume 98.1 fL (80.0-94.0); Mean Platelet Volume 9.6 fL (7.4-10.4); Platelet Count 51 10^3/uL (130-400); Red Blood Cell Count 3.22 10^6/uL (4.70-6.10); Red Cell Dist. Width 14.8 % (11.5-14.5); White Blood Cell Count 4.6 10^3/uL (4.8-10.8)
[2024-10-04 05:47] LABS: Albumin 2.7 g/dl (3.5-5.0); Blood Urea Nitrogen 13 mg/dl (9-20); Calcium 6.8 mg/dl (8.4-10.2); Carbon Dioxide 22 mmol/L (22-30); Chloride 105 mmol/L (98-107); Estimated Creatinine Clearance > 125 ml/min; Glucose 92 mg/dl (70-99); Magnesium 2.1 mg/dl (1.6-2.3); Potassium 3.5 mmol/L (3.5-5.1); Sodium 136 mmol/L (135-145); eGFR > 60.00
[2024-10-04 07:10] VITALS: BP 137/84
[2024-10-04] MEDS: CALCIUM GLUCONATE 290 MG IV (07:36)
[2024-10-04] MEDS: VITAMIN D3 (cholecalciferol) 25 MCG PO (07:37)
[2024-10-04] MEDS: KCL 20 MEQ PO (07:37)
[2024-10-04] MEDS: TUMS EX (EXTRA STRENGTH) CHEWABLE TABLET 300 MG PO (07:37)
[2024-10-04] MEDS: VITAMIN B-12 1000 MCG PO (07:37)
[2024-10-04] MEDS: SINEMET 25-100 1 TABLET PO ×2 (07:37→12:20)
[2024-10-04] MEDS: ZOVIRAX 400 MG PO (07:38)
[2024-10-04] MEDS: PEPCID 20 MG PO (07:38)
--- NOTE | 2024-10-04 09:29 | W.PN.HOSP.TC ---
Today's Communication/Plan
-
d/c
Assessment / Plan
Assessment / Plan
pt is a 69 year old male
Hypocalcemia/hypomagnesemia--possibly some contribution from diarrhea--although could be related to chemo/immunotherapy---replete calcium (corrects to 7.8), giving 4gms of calcium now and magnesium WNL--follow labs-- PT/OT
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
unclear if Parkinson's disease is primary and exacerbated by CAR-T or parkinsonian symptoms from CAR-T treatment--follows at [facility]--is on prophylactic acyclovir, and Bactrim--will continue both--we will continue carbidopa levodopa
Diarrhea x 1 month--stool studies were done through [facility] and were negative--patient and both had norovirus approximately 10 days ago which has resolved--he also gets diarrhea from lactose as he is lactose intolerant--replete
calcium and magnesium and see if diarrhea improves--imodium PRN
B12 deficiency--continue B12 supplementation
severe protein calorie malnutrition--albumin 2.7--affects protein bound molecules including calcium
DVT prophylaxis--Lovenox
CODE STATUS--full code
Anticipated Discharge: Today
Subjective/Interval History
-
Date of Service: October 04, 2024
pt mag WNL, calcium corrects to 7.8--giving 4 more gms of calcium
Objective Data
-
Labs:
Laboratory Results
10/04/24
04:44
WBC 4.6 L
Hgb 10.6 L
Hct 31.6 L
Plt Count 51 L
Sodium 136
Potassium 3.5
Chloride 105
Carbon Dioxide 22
BUN 13
Creatinine 0.6 L
Glucose 92
Calcium 6.8 L*
Vital Signs:
max temp for 24 hours
10/03/24
22:55
Temp 98.1 F
Vital Signs
Temp Pulse Resp BP Pulse Ox
98.3 F 96 16 137/84 98
10/04/24 07:10 10/04/24 07:10 10/04/24 07:10 10/04/24 07:10 10/04/24 07:10
I&O
10/03/24 10/04/24 10/05/24
06:59 06:59 06:59
Intake Total 920 / 920
Output Total 525 / 525
Balance 395 / 395
Review of Systems
-
All other systems: Reviewed and negative
Physical Exam
-
General: Appears Chronically Ill
HEENT: Normocephalic and Atraumatic
Respiratory: Clear to Auscultation; Negative Wheezes or Rhonchi
Cardiac: Regular Rhythm and S1/S2; Negative Murmur
GI: Soft, Nontender, Nondistended and Normal Bowel Sounds
Musculoskeletal: No Clubbing, No Cyanosis and No Edema
[2024-10-04 11:00] VITALS: BP 152/92
[2024-10-04 11:36] VITALS: BMI 26.9
[2024-10-04] MEDS: IMODIUM 2 MG PO (12:20)
--- NOTE | 2024-10-04 12:31 | CM ---
Reviewed the chart notes. Patient is being discharged to home today. CM spoke with intake [facility], patient accepted.
Plan: Discharge to home today with [facility] services. Patient's spouse to provide transportation home.
[facility]
--- NOTE | 2024-10-04 14:14 | W.DCSUMMARY ---
Discharge Summary
Discharge Data
Date of Admission: 10/02/24
Date of Discharge: 10/04/24
Total time spent discharging patient (in min): 31
-
Pending Results: No
Hospital Course
Primary care physician : Mikey Garcia
Principal Discharge diagnosis : Hypocalcemia/hypomagnesemia
Chronic Discharge diagnosis : Multiple myeloma, chronic diarrhea, B12 deficiency, severe protein calorie malnutrition
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 There was also some
question of whether or not he had Parkinson's disease or parkinsonian is him from the CAR-T treatment. Starting on Babar frazier, the patient's who is also a nurse, recognize some cognitive changes and weakness. She asked for labs to be drawn
at the infusion center and he was found to have low magnesium and a low calcium. He was then referred to the emergency room for admission.
Problem #1: Hypocalcemia/hypomagnesemia. Patient's calcium on admission was 5.7 with low ionized calcium. He received IV calcium repletion. Calcium went from 5.7-6 0.1-6.8 at which point he was given his last dose of 4 g of IV calcium prior to
discharge. 6.8 corrects to 7.84 due to low albumin of 2.7, which is why he was given the last dose. Ionized calcium was also low. Magnesium on admission was 1.1 which increased to 1.5 which then increased to 2.1 after magnesium repletion. Some
element of his electrolyte abnormalities are in part related to his chronic diarrhea which she has had for over a month. They are also likely related to his multiple myeloma and he is followed at [facility]. Prescription has been
given to the patient and his for the patient to have a BMP and magnesium checked on Saturday, October 06, 2024. He is on oral calcium supplementation.
Problem #2: All of the medical issues. These include Multiple myeloma, chronic diarrhea, B12 deficiency, severe protein calorie malnutrition. These medical issues were stable during his hospitalization. Medications were continued as able.
Patient is stable for discharge home at this time. If there are any questions regarding this dictation or his hospital stay, please not hesitate to call. Our office number is [phone].
Discharge Plan
-
Patient Disposition: Home with Home Care
Discharge Diagnosis/Procedures: Hypocalcemia, hypomagnesemia, multiple myeloma, diarrhea x 1 month, B12 deficiency
Condition: Good
Diet: As tolerated, Regular and Other diet
Additional Diets: low lactose
Activity: As tolerated
Driving Restrictions: As prior to admission
Bathing Restrictions: None
Blood Work: BMP, magnesium Saturday--results to cancer doctor
Other Services: VN
Referrals:
Mikey Garcia MD [Family Provider] - in less than 1 week
Prescriptions:
New
acetaminophen 325 mg Tablet
650 mg PO Q4HPRN PRN (Reason: mild pain/PÉREZ/temp> 100.4F) Qty: 0 0RF
Continued
Xgeva 120 mg/1.7 mL (70 mg/mL) Solution
120 mg SC QMONTH
Patient Comments:
cholecalciferol (vitamin D3) [Vitamin D3] 25 mcg (1,000 unit) Capsule
25 mcg PO DAILY
loperamide 2 mg Capsule
2 mg PO Q2HPRN PRN (Reason: diarrhea)
calcium carbonate 300 mg (750 mg) Tablet,Chewable
300 mg PO TID
sulfamethoxazole-trimethoprim [Bactrim DS] 800-160 mg Tablet
1 tab PO MOWEFR
famotidine [Pepcid] 20 mg Tablet
20 mg PO DAILY
carbidopa-levodopa [Sinemet] 25-100 mg Tablet
1 tab PO TID@0700,1100,1700
cyanocobalamin (vitamin B-12) 1,000 mcg Tablet
1,000 mcg PO DAILY
acyclovir 400 mg Tablet
400 mg PO BID
mirtazapine 7.5 mg Tablet
7.5 mg PO HS
potassium chloride [Klor-Con M20] 20 mEq Tablet,Er Particles/Crystals
20 meq PO BID
Patient Comments:
10/02/24: Patient cuts in half to take half at a time, full tab is too big.
Discharge Orders:
Discharge Patient (As Directed); Ordered 10/04/24
Ordered By: Maite Yeung
Discharge Date and Time
Discharge Date/Time: 10/04/24 13:30
Print Language: TURKISH
--- NOTE | 2024-10-06 17:06 | W.PN.UPDATE ---
Update Note
Progress Note Update
Called by the lab for critical calcium value of 6.9--patient albumin is 3.1 and he corrects to 7.6
Potassium is slightly low at 3.4
Spoke with Marianne and recommended the following: Take 1 extra dose of potassium today (takes 20 mEq twice daily so this would be a third dose)--also would increase Tums from 1 tablet 3 times a day to 2 tablets 3 times a day
She stated he is due to follow-up on Saturday with [facility] as well as getting in touch on with the nurse practitioner
is agreeable to this plan
== END 2024-10-04 13:30 | disposition home health service (06) | DRG 640 ==
LOC: 2 NORTH 19:00
PROVIDERS: ADMITTING PHYSICIAN Internal Medicine; EMERGENCY PHYSICIAN Emergency Medicine; FAMILY PHYSICIAN Family Medicine
DX: E83.51 Hypocalcemia (principal); E43 Unspecified severe protein-calorie malnutrition; C90.00 Multiple myeloma not having achieved remission; G72.0 Drug-induced myopathy; Z94.84 Stem cells transplant status; E83.42 Hypomagnesemia; E53.8 Deficiency of other specified B group vitamins; K52.9 Noninfective gastroenteritis and colitis, unspecified; G92.00 Immune effector cell-associated neurotoxicity syndrome, grade unspecified; G20.A1 Parkinson's disease without dyskinesia, without mention of fluctuations; F17.200 Nicotine dependence, unspecified, uncomplicated; I10 Essential (primary) hypertension; E73.9 Lactose intolerance, unspecified; Z68.26 Body mass index [BMI] 26.0-26.9, adult
CPT/HCPCS: 74230; 80048; 82040; 82330; 82607; 83735; 84443; 84484; 85025; 85027; 92611; 93005; 96361; 96365; 96366; 96375; 97116; 97163; 97167; 97535; 99291

== ENCOUNTER 2024-10-06 11:22 | Outpatient (RCR) | payer OTHER, SELFPAY ==
[2024-10-02 11:54] LABS: % Basophils 0.1 % (0-2); % Eosinophils 0.1 % (0-6); % Immature Granulocytes 4.5 % (0-0.5); % Lymphocytes 22.3 % (20.5-51.1); % Monocytes 9.5 % (1.7-9.3); % Neutrophils 63.5 % (42.2-75.2); Absolute Immature Granulocytes 0.3 10^3/uL (0-0.05); Absolute Lymphocytes 1.5 10^3/uL (1.2-3.4); Absolute Monocytes 0.6 10^3/uL (0.1-0.6); Absolute Neutrophils 4.3 10^3/uL (1.4-6.5); Hematocrit 37.5 % (39.0-52.0); Hemoglobin 12.2 g/dL (13.0-18.0); Mean Corp Hgb Conc. 32.5 g/dL (33.0-37.0); Mean Corpuscular Hgb 32.4 pg (27.0-31.0); Mean Corpuscular Volume 99.7 fL (80.0-94.0); Mean Platelet Volume 9.4 fL (7.4-10.4); Platelet Count 60 10^3/uL (130-400); Red Blood Cell Count 3.76 10^6/uL (4.70-6.10); Red Cell Dist. Width 14.8 % (11.5-14.5); White Blood Cell Count 6.7 10^3/uL (4.8-10.8)
[2024-10-02 12:02] VITALS: BP 148/93
[2024-10-02 12:38] LABS: Blood Urea Nitrogen 20 mg/dl (9-20); Calcium 5.7 mg/dl (8.4-10.2); Carbon Dioxide 20 mmol/L (22-30); Chloride 104 mmol/L (98-107); Glucose 115 mg/dl (70-99); Potassium 3.6 mmol/L (3.5-5.1); Sodium 136 mmol/L (135-145); eGFR > 60.00
--- NOTE | 2024-10-02 14:11 | PTCARENOTE ---
1250- Pt here today for routine port flush and lab work. Pt spouse reveled that patient has had ongoing bouts of diarrhea, taking Imodium with limited relief. Pt has has had ongoing complications since CAR-T therapy on 06/02/24. Spouse noted
increased confusion, weakness and had a fall on 09/29/24 resulting in a 'bruised knee', denies any head injury. Pt recently diagnosed with Parkinson syndrome 09/07/24. Received critical value of Calcium 5.7. Notified [facility] BMT
program, nurse Shirley of value. Pt received Xgeva on 09/22/24. Pt spouse has call into BMT program for followup. Discussed with patient and spouse potential complications of Hypocalcemia and are agreeable to having eval in ED.
1330-Fern charge nurse at ED notified of patient transfer. Pt transferred to ED by this nurse via wheelchair accompanied by patient spouse. Right Sub-q port remains accessed and flushed. Report given to triage nurse.
[2024-10-06 11:30] VITALS: BP 137/90
[2024-10-06 13:58] LABS: Blood Urea Nitrogen 17 mg/dl (9-20); Calcium 6.9 mg/dl (8.4-10.2); Carbon Dioxide 25 mmol/L (22-30); Chloride 106 mmol/L (98-107); Glucose 120 mg/dl (70-99); Magnesium 1.7 mg/dl (1.6-2.3); Potassium 3.4 mmol/L (3.5-5.1); Sodium 140 mmol/L (135-145); eGFR > 60.00
[2024-10-06 15:55] LABS: Albumin 3.1 g/dl (3.5-5.0)
== END 2024-10-06 23:59 | disposition home or self-care (01) ==
LOC: OID 11:22
PROVIDERS: Internal Medicine; ATTENDING PHYSICIAN Nurse Practitioner; PRIMARYCARE PHYSICIAN Family Medicine
DX: C90.02 Multiple myeloma in relapse (principal)
CPT/HCPCS: 36415; 36591; 80048; 82040; 83735; 85025

== ENCOUNTER 2024-10-16 14:12 | Outpatient (RCR) | payer OTHER, SELFPAY | END 2024-11-06 23:59 | disposition home or self-care (01) | LOC: OID 14:12 | PROVIDERS: ATTENDING PHYSICIAN Nurse Practitioner; PRIMARYCARE PHYSICIAN Family Medicine | DX: C90.02 Multiple myeloma in relapse (principal) | CPT/HCPCS: 96523 ==

== ENCOUNTER 2024-10-19 22:40 | Inpatient (IN) | payer OTHER, SELFPAY ==
[2024-10-19] VITALS (8 sets, daily range): BP systolic 105–126; BP diastolic 75–86; BMI 24.7
--- NOTE | 2024-10-19 16:50 | ED.GENMED ---
ED Provider Triage
<Debby Ly, MANAGER STRATEGIC DEVELOPMENT - Last Filed: 10/19/24 16:52>
-
Patient seen by provider in Triage?: Seen in Triage
Attestation: A medical screening examination has been initiated by a qualified medical provider. Based on the assessment performed at this time, it has been determined that an emergent medical condition may exist and the patient has been informed
that further medical evaluation and possible additional diagnostic testing may be needed.
HPI: 69-year-old male w Multiple Myeloma is here for general weakness, concerned for dehydration
GENERAL: Alert , in no apparent distress, frail
EYE: No visual abnormalities.
NECK: Trachea midline
ENT: No visible abnormalities.
LUNGS: No acute respiratory distress
NEUROLOGICAL: Alert and oriented
SKIN: Skin intact. No visible changes.
MUSCULOSKELETAL: Moving extremities normally
PSYCH: Normal and appropriate interaction.
This is a medical evaluation conducted in person to initiate diagnostic evaluation and provide initial therapeutics. Please see further documentation by the treating clinician.
History of Present Illness
<Debby Ly, MANAGER STRATEGIC DEVELOPMENT - Last Filed: 10/19/24 16:52>
General
Chief Complaint: Abdominal Symptoms
Time Seen by Provider: 10/19/24 17:10
<Shon Flores DO - Last Filed: 10/19/24 20:58>
General
Source: patient and spouse
History of Present Illness
History of Present Illness:
69-year-old male brought to the emergency room by family for evaluation of copious diarrhea, confusion and suspected dehydration. Patient has had diarrhea for couple months which was thought to be related to his multiple myeloma and treatment
thereof. However over the past couple weeks the amount of diarrhea has increased. He is going at least 8 times a day. Each episode is voluminous and watery. He has not had a fever. Patient has been receiving Imodium and was started on
budesonide as well as oral prednisone for the diarrhea without any improvement. Patient is tolerating oral intake but has decreased appetite.
Past History
<Debby Ly, MANAGER STRATEGIC DEVELOPMENT - Last Filed: 10/19/24 16:52>
Past History
ED Past Medical History: HTN
ED Past Surgical History: Orthopedic (Surg on L fifth finger) and Tonsilectomy
Social History
Tobacco: Smoker (Cigar weekly)
Alcohol: Occasional
Personal:
Living: with family
Phy Exam
<Shon Flores, DO - Last Filed: 10/19/24 20:58>
Physical Exam
Physical Exam:
General: Awake, Alert, Oriented X2. Appears chronically ill
Vitals: unremarkable
Head: Atraumatic
Eyes: Pupils equal, EOMI
Throat: Airway intact, no exudates, dry mucosa
Neck: Trachea midline
Lungs: Clear and equal b/l
Heart: Regular rate, no murmurs
Abd: Soft, Nontender, No pulsatile mass
Neuro: Nonfocal but diffusely weak
Skin: Warm, dry, no rash
Extremities: pulses equal b/l, no edema
Course
<Debby Ly, MANAGER STRATEGIC DEVELOPMENT - Last Filed: 10/19/24 16:52>
Orders/Labs/Results
Orders:
Orders
10/19/24 16:47
Complete Blood Count/With Diff Urgent
10/19/24 17:22
Comprehensive Metabolic Panel Urgent
Magnesium Urgent
10/19/24 18:39
Norovirus by PCR Urgent
IZABELA Source: Feces/Stool
Specimen Description:
STOOL [C difficile Antigen & Toxins] Urgent
IZABELA Source: Feces/Stool
Specimen Description:
Stool Culture Urgent
IZABELA Source: Feces/Stool
Specimen Description:
Stool For WBC Urgent
IZABELA Source: Feces/Stool
Specimen Description:
Lactated Ringers [Lr] 1,000 ml IV BOLUS
10/19/24 19:07
Carbidopa/Levodopa [Sinemet 25-100] 1 tablet PO NOW STA
Abnormal Lab Results
10/19/24 10/19/24
16:47 17:22
WBC 1.8 L* 10^3/uL
(4.8-10.8)
RBC 3.94 L 10^6/uL
(4.70-6.10)
Hgb 12.7 L g/dL
(13.0-18.0)
Hct 38.4 L %
(39.0-52.0)
MCV 97.5 H fL
(80.0-94.0)
MCH 32.2 H pg
(27.0-31.0)
RDW 16.6 H %
(11.5-14.5)
Plt Count 52 L 10^3/uL
(130-400)
MPV 11.0 H fL
(7.4-10.4)
Abs Immat Gran (auto) 0.1 H 10^3/uL
(0-0.05)
Absolute Neuts (auto) 1.1 L 10^3/uL
(1.4-6.5)
Absolute Lymphs (auto) 0.3 L 10^3/uL
(1.2-3.4)
Immature Gran % 7.7 H %
(0-0.5)
Lymphocytes % 15.4 L %
(20.5-51.1)
Monocytes % 14.3 H %
(1.7-9.3)
Chloride 114 H mmol/L
(98-107)
Carbon Dioxide 13 L* mmol/L
(22-30)
BUN 41 H mg/dl
(9-20)
Creatinine 1.5 H mg/dL
(0.7-1.3)
Glucose 194 H mg/dl
(70-99)
Calcium 7.6 L mg/dl
(8.4-10.2)
Alkaline Phosphatase 138 H U/L
(38-126)
Total Protein 4.5 L g/dl
(6.3-8.2)
Albumin 2.9 L g/dl
(3.5-5.0)
10/19/24 16:47
10/19/24 17:22
Vital Signs
Initial and Last Documented VS:
Initial Vital Signs
Pulse Resp BP Pulse Ox
83 16 114/75 100
10/19/24 15:03 10/19/24 15:03 10/19/24 15:03 10/19/24 15:03
Last Documented Vital Signs
Pulse Resp BP Pulse Ox
77 12 114/75 98
10/19/24 18:30 10/19/24 18:30 10/19/24 15:03 10/19/24 18:30
Kileylt;Shon Flores, DO - Last Filed: 10/19/24 20:58>
Orders/Labs/Results
Orders:
Orders
10/19/24 16:47
Complete Blood Count/With Diff Urgent
10/19/24 17:22
Comprehensive Metabolic Panel Urgent
Magnesium Urgent
10/19/24 18:39
Norovirus by PCR Urgent
IZABELA Source: Feces/Stool
Specimen Description:
STOOL [C difficile Antigen & Toxins] Urgent
IZABELA Source: Feces/Stool
Specimen Description:
Stool Culture Urgent
IZABELA Source: Feces/Stool
Specimen Description:
Stool For WBC Urgent
IZABELA Source: Feces/Stool
Specimen Description:
Lactated Ringers [Lr] 1,000 ml IV BOLUS
10/19/24 19:07
Carbidopa/Levodopa [Sinemet 25-100] 1 tablet PO NOW STA
Abnormal Lab Results
10/19/24 10/19/24
16:47 17:22
WBC 1.8 L* 10^3/uL
(4.8-10.8)
RBC 3.94 L 10^6/uL
(4.70-6.10)
Hgb 12.7 L g/dL
(13.0-18.0)
Hct 38.4 L %
(39.0-52.0)
MCV 97.5 H fL
(80.0-94.0)
MCH 32.2 H pg
(27.0-31.0)
RDW 16.6 H %
(11.5-14.5)
Plt Count 52 L 10^3/uL
(130-400)
MPV 11.0 H fL
(7.4-10.4)
Abs Immat Gran (auto) 0.1 H 10^3/uL
(0-0.05)
Absolute Neuts (auto) 1.1 L 10^3/uL
(1.4-6.5)
Absolute Lymphs (auto) 0.3 L 10^3/uL
(1.2-3.4)
Immature Gran % 7.7 H %
(0-0.5)
Lymphocytes % 15.4 L %
(20.5-51.1)
Monocytes % 14.3 H %
(1.7-9.3)
Chloride 114 H mmol/L
(98-107)
Carbon Dioxide 13 L* mmol/L
(22-30)
BUN 41 H mg/dl
(9-20)
Creatinine 1.5 H mg/dL
(0.7-1.3)
Glucose 194 H mg/dl
(70-99)
Calcium 7.6 L mg/dl
(8.4-10.2)
Alkaline Phosphatase 138 H U/L
(38-126)
Total Protein 4.5 L g/dl
(6.3-8.2)
Albumin 2.9 L g/dl
(3.5-5.0)
10/19/24 16:47
10/19/24 17:22
Vital Signs
Initial and Last Documented VS:
Initial Vital Signs
Pulse Resp BP Pulse Ox
83 16 114/75 100
10/19/24 15:03 10/19/24 15:03 10/19/24 15:03 10/19/24 15:03
Last Documented Vital Signs
Pulse Resp BP Pulse Ox
77 12 114/75 98
10/19/24 18:30 10/19/24 18:30 10/19/24 15:03 10/19/24 18:30
<Shon Cowan. DO Sandra - Last Filed: 10/19/24 20:58>
MDM/Problems Addressed
Differential Diagnosis Includes:
Dehydration, hypokalemia, acute renal failure
MDM/Problems Addressed:
Patient presents with some confusion and weakness. Workup here reveals multiple lab abnormalities. Patient's white blood cell count is 1.8 which is significantly lower than recent measurements at [place]. His absolute neutrophil count is
greater than the thousand however. Chemistry shows show dehydration consistent with prerenal azotemia. His creatinine has doubled in just 2 weeks. Patient's bicarb is quite low at 13 indicating a hyperkalemic metabolic acidosis. He does not have
a significant anion gap. Fluid resuscitation initiated. Stool cultures ordered. Patient has had negative stool studies about a month ago but given the increase in diarrhea we will repeat them. I believe the patient will require hospitalization
as he continues to have voluminous diarrhea and fluid resuscitation in the emergency room is not going to be adequate to reverse his lab abnormalities with continued GI losses
Chronic conditions affecting care: Cancer (Multiple myeloma)
<Shon Flores DO - Cesar Filed: 10/19/24 20:58>
*Pulse Oximetry
Patient hypoxic: no
*Critical Care Note
Total Time (30-74mins, 75-104mins- exclusive of procedures): Not Applicable
ED Attending Note
<Debby Ly NP - Last Filed: 10/19/24 16:52>
-
Portions of this chart may have been created with voice recognition software.� Occasional wrong word or��sound alike� substitutions may have occurred due to the inherent limitations of voice recognition software.
Discharge Plan
Departure
Patient Disposition: Admit
Date of Disposition: 10/19/24
Time of Disposition: 19:55
Admit to: Med/Surg
Presentation/result/management discussed w/ accepting MD/DO: Hospitalist
Condition: Fair
Discharge Problem:
Diarrhea, Altered mental state, Dehydration, Acidosis, hyperchloremic
Prescriptions:
No Action
cholecalciferol (vitamin D3) [Vitamin D3] 25 mcg (1,000 unit) Capsule
25 mcg PO DAILY
loperamide 2 mg Capsule
2 mg PO Q2HPRN PRN (Reason: diarrhea)
calcium carbonate 300 mg (750 mg) Tablet,Chewable
600 mg PO MEALS
sulfamethoxazole-trimethoprim [Bactrim DS] 800-160 mg Tablet
1 tab PO MOWEFR
famotidine [Pepcid] 20 mg Tablet
20 mg PO BID
carbidopa-levodopa [Sinemet] 25-100 mg Tablet
1 tab PO TID@0700,1100,1700
cyanocobalamin (vitamin B-12) 1,000 mcg Tablet
1,000 mcg PO DAILY
acyclovir 400 mg Tablet
400 mg PO BID
mirtazapine 7.5 mg Tablet
7.5 mg PO HS
potassium chloride [Klor-Con M20] 20 mEq Tablet,Er Particles/Crystals
20 meq PO BID
Patient Comments:
10/02/24: Patient cuts in half to take half at a time, full tab is too big.
acetaminophen 325 mg Tablet
650 mg PO Q4HPRN PRN (Reason: mild pain/PÉREZ/temp> 100.4F) Qty: 0 0RF
prednisone 20 mg Tablet
40 mg PO DAILY
Patient Comments:
10/19/24: 1 dose left, will resume budesonide 9mg daily when finished
metoprolol succinate 25 mg Tablet Extended Release 24 Hr
12.5 mg PO DAILY
Referrals:
Mikey Garcia MD [Family Provider] -
Interventions
Interventions:
*Risk Screen - Suicide Last Done: 10/19/24 15:03
*General Assessment Last Done: 10/19/24 17:30
*Neglect/Abuse Screening Last Done: 10/19/24 15:03
WY-Efwlrb-Kdvroabrqv Assessment Last Done: 10/19/24 18:03
Discharge Date and Time
Print Language: POLISH
[2024-10-19 17:16] LABS: % Basophils 0.5 % (0-2); % Immature Granulocytes 7.7 % (0-0.5); % Lymphocytes 15.4 % (20.5-51.1); % Monocytes 14.3 % (1.7-9.3); % Neutrophils 62.1 % (42.2-75.2); Absolute Immature Granulocytes 0.1 10^3/uL (0-0.05); Absolute Lymphocytes 0.3 10^3/uL (1.2-3.4); Absolute Monocytes 0.3 10^3/uL (0.1-0.6); Absolute Neutrophils 1.1 10^3/uL (1.4-6.5); Hematocrit 38.4 % (39.0-52.0); Hemoglobin 12.7 g/dL (13.0-18.0); Mean Corp Hgb Conc. 33.1 g/dL (33.0-37.0); Mean Corpuscular Hgb 32.2 pg (27.0-31.0); Mean Corpuscular Volume 97.5 fL (80.0-94.0); Nucleated Red Blood Cells % 3.8 % (-); Platelet Count 52 10^3/uL (130-400); Red Blood Cell Count 3.94 10^6/uL (4.70-6.10); Red Cell Dist. Width 16.6 % (11.5-14.5); White Blood Cell Count 1.8 10^3/uL (4.8-10.8)
[2024-10-19 17:51] LABS: ALT (SGPT) 13 U/L (0-50); AST (SGOT) 45 U/L (17-59); Albumin 2.9 g/dl (3.5-5.0); Alkaline Phosphatase 138 U/L (38-126); Blood Urea Nitrogen 41 mg/dl (9-20); Calcium 7.6 mg/dl (8.4-10.2); Carbon Dioxide 13 mmol/L (22-30); Chloride 114 mmol/L (98-107); Glucose 194 mg/dl (70-99); Magnesium 2.2 mg/dl (1.6-2.3); Potassium 3.7 mmol/L (3.5-5.1); Sodium 140 mmol/L (135-145); Total Bilirubin 0.7 mg/dl (0.2-1.3); Total Protein 4.5 g/dl (6.3-8.2); eGFR 49.77
[2024-10-19] MEDS: LR 1000 IV (18:48)
[2024-10-19] MEDS: SINEMET 25-100 1 TABLET PO (19:13)
[2024-10-20] VITALS (28 sets, daily range): BP systolic 79–156; BP diastolic 56–96; PULSE 90; O2SAT 99; BMI 24.5
--- NOTE | 2024-10-20 00:05 | HPS.HSE ---
Family Physician
-
Family Physician: Mikey Garcia
Chief Complaint
-
Late Entry - Patient seen and examined 10/19/24 @ 9 AM.
Diarrhea
History of Present Illness
Patient is a 69y M with PMH significant for multiple myeloma (currently in remission) who presents to ED complaining of acute on chronic diarrhea. History obtained from patient and his at the bedside. Patient was treated at [facility] with
CAR-T in May 2024. Since that time he has been having issues with diarrhea. 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 He has had
infectious / stool studies done which were unremarkable. He was started on Imodium which he has been taking 5-6 tabs per day - also with minimal improvement in his symptoms.
Patient reports 4-7 bowel movements per day on average. Stool is mostly watery with some 'puffs' of stool. No blood / black stool.
Over the past 4-5 days, patient has noted increase in his symptoms with 8-9 BM per day and mostly watery stools. He has been extremely weak, had poor appetite and has noted that he has seemed somewhat confused.
Patient presented to the ED this evening for further evaluation and treatment.
Medical History
Past Medical History
Past Medical History: Reports Other
Additional Past Medical History:
Multiple Myeloma in Remission
Steroid-Induced DM-II
Hypertension
Parkinsonism (? chemo induced)
Peripheral Neuropathy
Past Surgical History: Reports Other
Additional Past Surgical History:
Port Placement
T&A
Vasectomy
Lithotripsy
Hand Surgery
Social History
Tobacco: Smoker (Rare cigar use. No cigarettes.)
Alcohol: None
Personal:
Living: With Family
Family History
Family History: Other (Daughter: Crohn's Disease)
Allergies / Home Medications
Allergies reflects when Allergies were last updated in [employer].
Home Medications with original date entered in [employer]
Allergy/Medication List:
Allergies
Allergy/AdvReac Type Severity Reaction Status Date / Time
Cephalosporins Allergy Unknown Verified 10/19/24 15:07
ondansetron [From Zofran] Allergy confusion Verified 10/19/24 15:07
penicillin G Allergy via Verified 10/19/24 15:07
allergy
testing
Penicillins Allergy via Verified 10/19/24 15:07
allergy
testing
Home Medications
cholecalciferol (vitamin D3) 25 mcg (1,000 unit) capsule (Vitamin D3) 25 mcg PO DAILY Supplement 08/25/24
acyclovir 400 mg tablet 400 mg PO BID PROPHYLAXIS 10/02/24
calcium carbonate 600 mg PO MEALS Gastrointestinal Issue 10/02/24
carbidopa 25 mg-levodopa 100 mg tablet (Sinemet) 1 tab PO TID@0700,1100,1700 Neurological Condition 10/02/24
cyanocobalamin (vitamin B-12) 1,000 mcg tablet 1,000 mcg PO DAILY Supplement 10/02/24
famotidine 20 mg tablet (Pepcid) 20 mg PO BID Gastrointestinal Issue 10/02/24
loperamide 2 mg capsule 2 mg PO Q2HPRN PRN diarrhea 10/02/24
mirtazapine 7.5 mg tablet 7.5 mg PO HS 10/02/24
potassium chloride 20 mEq tablet,extended release(part/cryst) (Klor-Con M) 20 meq PO BID Electrolyte Repletion 10/02/24
sulfamethoxazole 800 mg-trimethoprim 160 mg tablet (Bactrim DS) 1 tab PO MOWEFR PROPHYLAXIS 10/02/24
acetaminophen 325 mg tablet 650 mg (2 x 325 mg) PO Q4HPRN PRN mild pain/PÉREZ/temp> 100.4F #0 tabs 10/04/24
metoprolol succinate 25 mg tablet,extended release 24 hr 12.5 mg PO DAILY 10/19/24
prednisone 20 mg tablet 40 mg PO DAILY 10/19/24
Review of Systems
-
History Source: Patient and Family
A 12 point ROS was completed and negative except as noted: Yes
Constitutional: Reports Fatigue; Denies Fever or Chills
EENT: Denies Sore Throat
Respiratory: Denies Cough or Trouble Breathing
Cardiac: Reports Chest Pain (burning chest discomfort); Denies Palpitations
Abdomen/GI: Reports Nausea, Diarrhea and Anorexia; Denies Abdominal Pain or Vomiting
: Denies Dysuria or Flank Pain
Musculoskeletal: Reports Edema
Neurological: Reports Weakness; Denies Dizzy or Headache
Psych: Denies Depression or Anxiety
Physical Exam
Vital Signs
Vital Signs
Temp Pulse Resp BP Pulse Ox
91.2 F L 70 18 126/86 98
10/19/24 23:00 10/19/24 23:00 10/19/24 23:00 10/19/24 23:00 10/19/24 23:00
Physical Exam
General: Other (69y M in no acute distress. Chronically ill-appearing.)
HEENT: Other (Dry MM. Neck supple.)
Respiratory: Clear; No Wheezes, Rales or Rhonchi
Cardiac: S1/S2 and Regular Rhythm; No Murmur
GI: Soft, Non Tender, Non Distended and Normal Bowel Sounds
Musculoskeletal: No Clubbing, No Cyanosis and Other (3+ pitting edema b/l LEs.)
Neuro: AO x 3
Laboratory Results
-
10/19/24 16:47
10/19/24 17:22
Laboratory Results
Total Bilirubin 0.7 mg/dl (0.2-1.3) 10/19/24 17:22
AST 45 U/L (17-59) 10/19/24 17:22
ALT 13 U/L (0-50) 10/19/24 17:22
Alkaline Phosphatase 138 U/L (38-126) H 01/13/25 17:22
Impression/Plan
-
A/P: Patient is a 69y M with PMH significant for multiple myeloma who presents to ED complaining of acute on chronic diarrhea.
Acute on Chronic Diarrhea
- Admit for further evaluation and treatment.
- IVF support for replacement of volume / electrolyte losses.
- GI evaluation for additional recommendations.
- Try addition of cholestyramine for now to see if this improves symptoms.
- Repeat stool studies though infectious etiology seems unlikely given chronicity and prior negative testing.
FAITH
Non-Gapped Metabolic Acidosis secondary to GI Losses
- SCr = 1.5 compared to known baseline of 0.7.
- HCO3 =- 13 with normal anion gap.
- IVFs with supplemental bicarb.
- Follow I/Os.
- Follow for improvement in labs / lytes / renal function.
Multiple Myeloma
Pancytopenia
- Reportedly in remission by recent PET-CT and discussion with his Stencil Inspector at [facility].
- No active treatment since CAR-T in May 2024.
- Mild neutropenia noted today (ANC = 1100) with temp = 91.2.
- Follow temp curve.
- Neutropenic precautions for now.
- Follow for any active bleeding, etc.
- Hgb is somewhat higher than usual baseline.
- Continue usual prophylaxis regimen including Bactrim and Acyclovir. (? if these may be contributing to diarrhea?)
Steroid-Induced DM
- History of hyperglycemia requiring insulin coverage while on high-dose steroids.
- Not on chronic medications and does not monitor glucose at home.
- Follow sugars here and cover with SSI if needed.
- Update A1C.
DVT Prophylaxis: SCDs
Code Status: Full
[2024-10-20] MEDS: SODIUM BICARBONATE 1075 MEQ IV (00:08)
[2024-10-20] MEDS: REMERON 7.5 MG PO ×2 (00:15→22:41)
--- NOTE | 2024-10-20 05:59 | PTCARENOTE ---
Dottie Hammonds on standby at this time,pt request,pts axillary temp 95.1,pt states that is his usual.Pt asking no rectal please.
[2024-10-20 06:12] LABS: Hematocrit 32.7 % (39.0-52.0); Hemoglobin 10.7 g/dL (13.0-18.0); Mean Corp Hgb Conc. 32.7 g/dL (33.0-37.0); Mean Corpuscular Hgb 31.6 pg (27.0-31.0); Mean Corpuscular Volume 96.5 fL (80.0-94.0); Mean Platelet Volume 11.1 fL (7.4-10.4); Platelet Count 46 10^3/uL (130-400); Red Blood Cell Count 3.39 10^6/uL (4.70-6.10); Red Cell Dist. Width 16.5 % (11.5-14.5); White Blood Cell Count 2.6 10^3/uL (4.8-10.8)
[2024-10-20 06:14] LABS: ALT (SGPT) 11 U/L (0-50); AST (SGOT) 43 U/L (17-59); Albumin 2.3 g/dl (3.5-5.0); Alkaline Phosphatase 113 U/L (38-126); Blood Urea Nitrogen 40 mg/dl (9-20); Calcium 6.7 mg/dl (8.4-10.2); Carbon Dioxide 16 mmol/L (22-30); Chloride 114 mmol/L (98-107); Direct Bilirubin 0.1 mg/dl (0.0-0.4); Estimated Creatinine Clearance 54 ml/min; Glucose 131 mg/dl (70-99); Phosphorus 2.6 mg/dl (2.5-4.5); Potassium 3.9 mmol/L (3.5-5.1); Sodium 141 mmol/L (135-145); Total Bilirubin 0.5 mg/dl (0.2-1.3); Total Protein 3.7 g/dl (6.3-8.2); eGFR 54.07
[2024-10-20 06:39] LABS: TSH Reflex To Free T4 0.86 uIU/ml (0.47-4.68)
--- NOTE | 2024-10-20 06:58 | CON.GI ---
Addendum entered and electronically signed by Shona Mercer DO 10/20/24 14:35:
The patient was seen and examined by me independently in collaboration with the nurse practitioner.
Past medical history/social history/medications/allergies/family history reviewed.
Lab data and imaging data reviewed.
Briefly, Shon Iverson is a 69 y.o. male with pmhx multiple myeloma s/p CAR-T treatment in 2023 c/b [facility] follows edyb high-dose steroids, recent diagnosis of parkinsons, who presents with persistent diarrhea x2 months with associated weakness and
failure to thrive. He is hemodynamically stable but labs demonstrate a metabolic acidosis with multiple electrolyte derrangements.
History obtained from patient and (who is RN) at bedside. Reporteldy 2 monhts of watery diarrhea, 4-6 times per day. Diarrhea starts at around 2 pm daily (none prior), multiple BMs one right after another, always diarrhea, greasy and floating.
He admits to approx 2 nocturnal episodes of diarrhea nightly. Sx in both fed and fasting state. 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 He is
also on standing loperamide, anywhere from 2-6 pills daily, which also has not seemed to provide any improvement. He also states he had norovirus in September, diarrhea predates norovirus and not much changed when he had it in terms of his diarrhea.
He reports having infectious stool studies completed at [facility] in September which all returned negative.
He as given cholesytramine on arrival, Last BM was at 8 pm last night.
Of note, he has a history of constipation, worse with chemotherapy.
Abdominal Xray: moderate colonic stool burden
A/P: Chronic diarrhea with electrolyte abnormalities and metabolic acidosis--
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
-no significant improvement with daily loperamide
-s/p cholestyramine with some improvement?
-description of stool suggestive of steatorrhea
-check fecal elastase, stool [id number] (to assess for protein losing enteropathy), stool electrolytes
-repeat infectious stool studies
-if unremarkable, would consider neuroendocrine workup (i.e. VIP, gastrin, etc.)
-would hold off on scoping due to his neutropenia and thrombocytopenia
Original Note:
Consultation
-
Date/Time Consultation Requested: 10/19/24 2230
Date/Time Consultation Performed: 10/20/24 0700
Requesting Provider: Bhavesh Lao DO
Performing Provider: NINA Godinez, Aline Mercer DO
Reason for Consultation: diarrhea
Medical History
Chief Complaint / HPI
Chief Complaint: diarrhea
History of Present Illness:
Pt is a 69yo with hx multiple myeloma in remission with hx prior stem cell transplant in 2021 then chemo in April with CAR-T therapy in 05/2024, steroid induced DM, palpitation, PVC's, neuropathy with acute on chronic diarrhea. In review with
patient developed neurotoxicity with CAR-T therapy with confusion and hallucination and needed course of steroids in May. 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 Since May he has also had diarrhea
with worsening symptoms about 4-7 stools daily not improved with steroids or Imodium , 50 lb wt loss, failure to thrive with severe calorie malnutrition, decreased appetite and hypoalbuminemia. He also has complaints of odynophagia and dysphagia
with food sticking in upper esophagus at times. . His daughter is a marine driller and recommended adding [employer] supplement that he has been taking past 2 weeks with 2-3 lb wt gain. He also was treated with another course of steroids and due to
change to Budesonide 9mg daily. He admit to nausea without vomiting but denies abdominal pain, or rectal bleeding. On admission patient note with pancytopenia with WBC 1.8, hbg 12.7 with drop to 10.7 platelets 52,000 with ANC 1.1, albumin 2.3.
Pt also noted with metabolic acidosis with Co2 13, BUN 41, creat 1.5 and calcium drop to 6.7 after admission. He was also admittted to 09/22-12-29 with electrolyte imbalance. No EGD at [facility] Last 06/2021- Day colonoscopy 3 mm polyp at appendiceal
orifice removed with cold forceps. bx TA.
Past Medical History
Past Medical History: Arrhythmias (PVS's), Cancer (multiple Myeloma in remission stem cell transplant March 2022), HTN, NIDDM and Other (parkinson's disease- excellerated with recent treatment, CAR-T induced neurotoxicity, steroid induced myopathy,
palpitations)
Past Surgical History: Tonsilectomy, Urological (lithotripsy, vasectomy) and Other (finger surgery)
Social History
Tobacco: Non-Smoker
Alcohol: None
Drug: None
Personal:
Living: With Family
Employment: Other (currently not working with medical issues)
Family History
Family History: Other (daughter with crohns )
Allergies / Home Medications
Allergy/AdvReac Type Severity Reaction Status Date / Time
Cephalosporins Allergy Unknown Verified 10/19/24 15:07
ondansetron [From Zofran] Allergy confusion Verified 10/19/24 15:07
penicillin G Allergy via Verified 10/19/24 15:07
allergy
testing
Penicillins Allergy via Verified 10/19/24 15:07
allergy
testing
�Medication �Instructions �Recorded
cholecalciferol (vitamin D3) 25 25 mcg PO DAILY Supplement 08/25/24
mcg (1,000 unit) capsule (Vitamin
D3)
acyclovir 400 mg tablet 400 mg PO BID PROPHYLAXIS 10/02/24
calcium carbonate 600 mg PO MEALS Gastrointestinal 10/02/24
Issue
carbidopa 25 mg-levodopa 100 mg 1 tab PO TID@0700,1100,1700 10/02/24
tablet (Sinemet) Neurological Condition
cyanocobalamin (vitamin B-12) 1,000 mcg PO DAILY Supplement 10/02/24
1,000 mcg tablet
famotidine 20 mg tablet (Pepcid) 20 mg PO BID Gastrointestinal Issue 10/02/24
loperamide 2 mg capsule 2 mg PO Q2HPRN PRN diarrhea 10/02/24
mirtazapine 7.5 mg tablet 7.5 mg PO HS 10/02/24
potassium chloride 20 mEq 20 meq PO BID Electrolyte Repletion 10/02/24
tablet,extended
release(part/cryst) (Klor-Con M)
sulfamethoxazole 800 1 tab PO MOWEFR PROPHYLAXIS 10/02/24
mg-trimethoprim 160 mg tablet
(Bactrim DS)
acetaminophen 325 mg tablet 650 mg (2 x 325 mg) PO Q4HPRN PRN 10/04/24
mild pain/PÉREZ/temp> 100.4F #0 tabs
metoprolol succinate 25 mg 12.5 mg PO DAILY 10/19/24
tablet,extended release 24 hr
prednisone 20 mg tablet 40 mg PO DAILY 10/19/24
Review of Systems
-
History Source: Patient and Family
Constitutional: Reports Weight Loss, Fatigue and Other (hypothermic )
EENT: Reports No Symptoms
Respiratory: Reports No Symptoms
Cardiac: Reports No Symptoms
Abdomen/GI: Reports Nausea, Diarrhea and Other (odynophagia, dysphagia)
: Reports No Symptoms
Musculoskeletal: Reports Edema and Other (diffuse weakness with risk of falls )
Skin: Reports No Symptoms
Neurological: Reports Weakness
Endocrine: Reports No Symptoms
Hematologic/Lymphatic: Reports No Symptoms
Vital Signs
Temp Pulse Resp BP Pulse Ox
95.1 F L 85 8 108/75 97
10/20/24 05:59 10/20/24 06:00 10/20/24 06:00 10/20/24 06:00 10/20/24 06:00
Physical Exam
Exam
General: Other (thin appearing )
HEENT: Normocephalic and Anicteric
Respiratory: Clear
Cardiac: Regular Rhythm and Other (port in place )
GI: Soft, Non Tender and Non Distended
Musculoskeletal: No Clubbing
Skin: Warm and Dry
Neuro: Awake, Alert and AO x 3
Psych: Calm
Results
WBC 2.6 10^3/uL (4.8-10.8) L 10/20/24 05:17
Hgb 10.7 g/dL (13.0-18.0) L 10/20/24 05:17
Hct 32.7 % (39.0-52.0) L 10/20/24 05:17
MCV 96.5 fL (80.0-94.0) H 10/20/24 05:17
Plt Count 46 10^3/uL (130-400) L 10/20/24 05:17
Absolute Neuts (auto) 1.1 10^3/uL (1.4-6.5) L 10/19/24 16:47
Sodium 141 mmol/L (135-145) 10/20/24 05:17
Potassium 3.9 mmol/L (3.5-5.1) 10/20/24 05:17
Chloride 114 mmol/L (98-107) H 10/20/24 05:17
Carbon Dioxide 16 mmol/L (22-30) L 10/20/24 05:17
BUN 40 mg/dl (9-20) H 10/20/24 05:17
Creatinine 1.4 mg/dL (0.7-1.3) H 10/20/24 05:17
Calcium 6.7 mg/dl (8.4-10.2) L* 10/20/24 05:17
Total Bilirubin 0.5 mg/dl (0.2-1.3) 10/20/24 05:17
AST 43 U/L (17-59) 10/20/24 05:17
ALT 11 U/L (0-50) 10/20/24 05:17
Alkaline Phosphatase 113 U/L (38-126) 10/20/24 05:17
Diagnostic Image Results:
no imaging since admission
Prior GI Procedures:
EGD: ? none
Colonoscopy: 06/2021- Day colonoscopy 3 mm polyp at appendiceal orifice removed with cold forceps. bx TA.
Assessment / Plan
-
Pt is a 69yo with hx multiple myeloma in remission with hx prior stem cell transplant in 2021 then chemo in April with CAR-T therapy in 05/2024, steroid induced DM, palpitation, PVC's, neuropathy with acute on chronic diarrhea. In review with
patient developed neurotoxicity with CAR-T therapy with confusion and hallucination and needed course of steroids in May. 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 Since May he has also had diarrhea
with worsening symptoms about 4-7 stools daily not improved with steroids or Imodium , 50 lb wt loss, failure to thrive with severe calorie malnutrition, decreased appetite and hypoalbuminemia. He also has complaints of odynophagia and dysphagia
with food sticking in upper esophagus at times. . His daughter is a marine driller and recommended adding [employer] supplement that he has been taking past 2 weeks with 2-3 lb wt gain. He also was treated with another course of steroids and due to
change to Budesonide 9mg daily. He admit to nausea without vomiting but denies abdominal pain, or rectal bleeding. On admission patient note with pancytopenia with WBC 1.8, hbg 12.7 with drop to 10.7 platelets 52,000 with ANC 1.1, albumin 2.3.
Pt also noted with metabolic acidosis with Co2 13, BUN 41, creat 1.5 and calcium drop to 6.7 after admission. He was also admitted to 09/22-10-04 with electrolyte imbalance. No EGD at Last 06/2021- Day colonoscopy 3 mm polyp at appendiceal
orifice removed with cold forceps. bx TA.
-acute on chronic diarrhea
-multiple myeloma s/p stem cell transplant 2021 then chemo and CAR-T therapy in May
-neuro toxicity/onset of parkinson's port CAR-T therapy
-failure to thrive/wt loss/severe calorie malnutrition/hypoalbuminemia
-GERD
-metabolic acidosis and electrolyte imbalance
-pancytopenia with neutropenia
-electrolyte imbalance
-FAITH
-hypothermia
other med problems:
-PVC's
-palpations
-steroid induced DM
PLAN:
Etiology of diarrhea related to CAR-T therapy, infectious etiology, underlying constipation with overflow with recent parkinson's and imodium use vs other
agree with stool studies (per stool completed 09/25 at [facility] note neg per family
check obstruction series to eval for any underlying constipation, obstructive issues
if continued diarrhea can consider flex but currently borderline platelets and neutropenia
pt was on Prednisone 40mg with plan to wean to Budesonide 9mg daily -- will resume now
Questran added on admission
cont Pepcid BID
cont to correct acidosis and electrolyte imbalance per medical team
check dietary consult with FTT -- will add [employer] supplement 2 daily
check speech eval with some complaints of dysphagia-- has been on soft diet at home
will verify with if pt had prior EGD in past no prior to [facility]
remains on Acyclovir and Bactrim as prophylaxis
t/c oncology evaluation with pancytopenia
Pt scheduled GI follow up with Dr. Ratliff at end on October
Pt is scheduled with palliative care 11/02
-
-
Thank you for consultation and allowing me to participate in the patient's care. Please call the vision teacher GI physician during the after hours with any questions or concerns.
[2024-10-20] MEDS: TOPROL XL 12.5 MG PO (08:27)
[2024-10-20] MEDS: PEPCID 20 MG PO ×2 (08:27→20:04)
[2024-10-20] MEDS: KCL 20 MEQ PO ×2 (08:27→20:04)
[2024-10-20] MEDS: ZOVIRAX 400 MG PO ×2 (08:27→20:04)
[2024-10-20] MEDS: NOVOLOG FLEXPEN-LOW RESISTANCE SC ×2 (08:34→12:53)
[2024-10-20] MEDS: SINEMET 25-100 1 TABLET PO ×3 (08:34→18:01)
[2024-10-20 09:08] LABS: Glucose - Point of Care 111 mg/dl (70-99)
[2024-10-20] MEDS: QUESTRAN PO (09:18)
[2024-10-20 09:39] LABS: Glycohemoglobin (HgbA1c) 5.8 % (4.0-5.6)
[2024-10-20 10:30] LABS: Absolute Neutrophils -Man Diff 1.3 10^3/uL (1.4-6.5); Band Neutrophils 13 % (0-3); Lymphocytes 34 % (20-51); Metamyelocytes 3 % (-); Monocytes 10 % (2-9); Platelets Checked Yes; Segmented Neutrophils 40 % (42-75)
[2024-10-20 10:33] LABS: Anisocytosis 1+; Normal RBC Morphology No
[2024-10-20 10:34] LABS: Rouleaux Moderate; Total Cells Counted 100
--- NOTE | 2024-10-20 10:45 | PTOTSP ---
Speech Language Pathology:
Initial speech therapy assessment completed at bedside. Patient known to ST department at with recent OP VSE 10/02/24 revealing mild oropharyngeal dysphagia with trace transient aspiration on consecutive thin intake by straw. Regular/thin diet
recommended at that time. Per present at bedside, patient consuming softer solids at home with thin liquids.
At bedside, patient tolerated thin liquids, soft solids, and puree solids without overt difficulty or signs of aspiration. Immediate dry cough and patient report of difficulty with regular solid trial.
Recommend:
1) IDDSI 6 solids, thin liquids
2) Strategies: No consecutive swallows, avoid straws, slow rate, small bites/sips, upright positioning
3) Meds one at a time with thins as tolerated
4) Aspiration and reflux precautions
Reviewed recommendations with RN and MD. MAHAN to continue to follow pending hospitalization.
[2024-10-20] MEDS: ENTOCORT EC 9 MG PO (12:43)
[2024-10-20 12:53] LABS: Glucose - Point of Care 140 mg/dl (70-99)
--- NOTE | 2024-10-20 14:01 | W.PN.UPDATE ---
Update Note
Progress Note Update
Seen and examined. In bedside chair. at bedside. Updated. Acute on chronic diarrhea that has been ongoing for 2 weeks at this point in time. There is concern that there might be underlying CARTI colitis. GI consulted. Continue IV
fluids. Repeat BMP in the a.m. Stop bicarb drip and will initiate LR.
[2024-10-20] MEDS: SODIUM BICARBONATE IV (14:27)
[2024-10-20] MEDS: LR 1000 IV (14:35)
--- NOTE | 2024-10-20 14:43 | PN.CDI ---
CDI
- -
CDI:
Physician Documentation Request
Admit Date: 10/19/24 22:40
Dear Doctor José Antonio,
Clinical Indicators:
Patient admitted with acute on chronic diarrhea; PMH includes multiple myeloma.
10/20 note/assessment:
'pt with a 30 lb (14%) in 2 months, significant.'
'Pt consuming < 50% of meals.'
'With weight loss of > 7.5% in 3 months and < 75% estimated needs > 1 month pt meets AND/ASPEN criteria for moderate protein calorie malnutrition of chronic illness'
Based on the above information and your assessment, which of the following most accurately represents the patient's nutritional status?
Moderate Protein Calorie Malnutrition
Other (please specify)
Florence Criteria ([facility] Hospitalist 2017)
2 or more criteria must be present for either
non severe or severe malnutrition
Note that the criteria differs related to the
presence of an acute or chronic illness
Acute Illness Chronic Illness
Energy Intake Non Severe: <75% for >7 days Non Severe: <75% for >1 month
Severe: <50% for >5 days Severe: <75% for >1 month
Weight Loss Non Severe: 1-2% over 1 week Non Severe: 5% over 1 month
5% over 1 month 7.5% over 3 months
7.5% over 3 months 10% over 6 months
1 year N/A 20% over 1 year
Severe: >2% over 1 week Severe: >5% over 1 month
>5% over 1 month >7.5% over 3 months
>7.5% over 3 months >10% over 6 months
1 year N/A >20% over 1 year
Body Fat Non Severe: Mild Decrease Non Severe: Mild Loss
Severe: Moderate Decrease Severe: Severe Loss
Muscle Mass Non Severe: Mild Decrease Non Severe: Mild Loss
Severe: Moderate Decrease Severe: Severe Loss
Fluid Accumulation Non Severe: Mild Accumulation Non Severe: Mild Accumulation
Severe: Moderate to severe Severe: Moderate to severe
accumulation accumulation
Reduced Communication Assistant Strength Non Severe: N/A Non Severe: N/A
Severe: Measurably reduced Severe: Measurably reduced
Additional criteria that can be used to Determine if Mild or Moderate Malnutrition ([employer]ck Manual 2018)
Mild Moderate Severe
Albumin gm/dl <3.0 gm/dl <2.5 gm/dl <2.0 gm/dl
Pre Albumin mg/dl <15 gm/dl <10 mg/dl <5.0 mg/dl
BMI <18.5 <17 <16
Use of terms such as suspected, likely, concern for, or probable (associated with a specific diagnosis that is being evaluated, monitored, or treated as if it exists) are acceptable and can be coded in the inpatient setting, when documented at the
time of discharge.
Thank you,
Debbie Early RN BSN
CDI Specialist
available via tiger text
Please use your independent medical judgment in providing your response.
--- NOTE | 2024-10-20 16:08 | CM ---
CM spoke with spouse as pt on neutropenic precautions
Pt and spouse reside in [facility] with stairglide through garage
Pt has a 1st floor set up with hospital bed, WW, WC and shower chair
Pt is current with [facility]
Pt very weak and ambulating short distances with a WW currently
Utilizes a wheelchair while in the community
Spouse assists with personal care
Plan for stairglide to be installed to second floor on 10/22
PCP- Mikey Garcia
Rx- [facility]
Pt with rehab recs by therapy
Mariya is a rehab CM and well versed in dispo planning
Does not feel he can tolerate acute level and requesting SNF
PAC list provided
Plan for follow up with spouse tomorrow
Pt on neutropenic precautions
Discharge Disposition- SNF, will need auth
[2024-10-20 18:18] LABS: Glucose - Point of Care 148 mg/dl (70-99)
[2024-10-20] MEDS: QUESTRAN 4 GRAM PO (19:08)
[2024-10-20] MEDS: NOVOLOG FLEXPEN-LOW RESISTANCE 1 UNITS SC (19:08)
[2024-10-20 22:15] LABS: Glucose - Point of Care 118 mg/dl (70-99)
[2024-10-21] VITALS (10 sets, daily range): BP systolic 110–136; BP diastolic 74–90
[2024-10-21] MEDS: LR 1000 IV ×2 (01:02→11:21)
--- NOTE | 2024-10-21 02:05 | PTCARENOTE ---
Pt assessed as per nsg assessment. Pt continues with mucoid loose liquid stools. Fecal pouch applied as well as condom cath to protect irritated skin. No s/s of distress assessed. Will continue to monitor.
[2024-10-21 05:47] LABS: Blood Urea Nitrogen 30 mg/dl (9-20); Calcium 6.4 mg/dl (8.4-10.2); Carbon Dioxide 21 mmol/L (22-30); Chloride 115 mmol/L (98-107); Estimated Creatinine Clearance 75 ml/min; Glucose 112 mg/dl (70-99); Magnesium 1.8 mg/dl (1.6-2.3); Potassium 3.1 mmol/L (3.5-5.1); Sodium 142 mmol/L (135-145); eGFR > 60.00
[2024-10-21 05:54] LABS: Hemoglobin 10.5 g/dL (13.0-18.0); Mean Corp Hgb Conc. 33.9 g/dL (33.0-37.0); Mean Corpuscular Hgb 31.9 pg (27.0-31.0); Mean Corpuscular Volume 94.2 fL (80.0-94.0); Red Blood Cell Count 3.29 10^6/uL (4.70-6.10); Red Cell Dist. Width 16.5 % (11.5-14.5); White Blood Cell Count 1.9 10^3/uL (4.8-10.8)
[2024-10-21] MEDS: QUESTRAN 4 GRAM PO ×2 (06:09→22:19)
[2024-10-21 08:26] LABS: Glucose - Point of Care 101 mg/dl (70-99)
[2024-10-21 08:46] LABS: Platelet Count 31 10^3/uL (130-400)
[2024-10-21 08:47] LABS: Absolute Neutrophils -Man Diff 0.5 10^3/uL (1.4-6.5); Band Neutrophils 8 % (0-3); Lymphocytes 52 % (20-51); Monocytes 8 % (2-9); Normal RBC Morphology Yes; Platelets Checked Yes; Segmented Neutrophils 23 % (42-75)
[2024-10-21 08:48] LABS: Atypical Lymphocytes 6 %; Metamyelocytes 3 % (-); Smudge Cells 1+; Total Cells Counted 100; Vacuolated Segs 2+
[2024-10-21] MEDS: TOPROL XL 12.5 MG PO (09:19)
[2024-10-21] MEDS: NOVOLOG FLEXPEN-LOW RESISTANCE SC ×2 (09:19→14:13)
[2024-10-21] MEDS: PEPCID 20 MG PO ×2 (09:19→20:08)
[2024-10-21] MEDS: ENTOCORT EC 9 MG PO (09:21)
[2024-10-21] MEDS: ZOVIRAX 400 MG PO ×2 (09:21→20:07)
[2024-10-21] MEDS: SINEMET 25-100 1 TABLET PO ×3 (09:24→17:07)
[2024-10-21] MEDS: BACTRIM DS 800 MG/160 MG 1 TABLET PO (09:24)
[2024-10-21] MEDS: KCL 20 MEQ PO ×2 (09:27→20:08)
--- NOTE | 2024-10-21 09:29 | W.PN.GI.CBS2 ---
Addendum entered and electronically signed by Shona Mercer DO 10/21/24 14:37:
The patient was seen and examined by me independently in collaboration with the nurse practitioner.
Past medical history/social history/medications/allergies/family history reviewed.
Lab data and imaging data reviewed.
Ongoing diarrhea, acidosis, metabolic derangements, neutropenia and thrombocytopenia. Unclear what the driving force is here. Agree may need endoscopic evaluation, however, unable to proceed for now given electrolytes and platelets and WBC count.
Only received 2 does of questran thus far, can increase to BID dosing to see if any effect.
Will await result of stool studies. Unfortunately, spoke to lab and unable to check A1AT in stool. Pending results, will send more comprehensive panel.
Heme/onc consult
Consider inpatient palliative consult, depending on workup
Original Note:
Today's Communication / Plan
-
Etiology of diarrhea related to CAR-T therapy, infectious etiology(ruled out so far), underlying constipation with overflow with recent parkinson's and Imodium use(moderate stool on imaging overnight) vs other
stool completed 09/25 at [facility] note neg per family-- repeat with c-diff, Giardia/crypto/norovirus neg stool cx pending
fecal elastase pending, unable to do A1At stool testing
cont trial of Questran 1 dose given overnight with increased stool and rectal pouch in place--
if continued diarrhea can consider flex but currently borderline platelets and neutropenia unable to do til improved-- may need heme eval to assist
cont Budesonide 9mg daily was on OP wean but not improving
cont Pepcid BID
cont to correct acidosis and electrolyte imbalance per medical team -- still with persistent hypoglycemia/hypokalemia
appreciate dietary consult cont [employer] supplement 2 daily
s/p speech eval
remains on Acyclovir and Bactrim as prophylaxis
Pt scheduled GI follow up with Dr. Ratliff at end on October
Pt is scheduled with palliative care 11/02 vs consider IP eval with failure to thrive
reviewed with Dr. Chou -- cultures added with persistent hypothermia
Assessment / Plan
-
Pt is a 69yo with hx multiple myeloma in remission with hx prior stem cell transplant in 2021 then chemo in April with CAR-T therapy in 05/2024, steroid induced DM, palpitation, PVC's, neuropathy with acute on chronic diarrhea. In review with
patient developed neurotoxicity with CAR-T therapy with confusion and hallucination and needed course of steroids in May. 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 Since May he has also had diarrhea
with worsening symptoms about 4-7 stools daily not improved with steroids or Imodium , 50 lb wt loss, failure to thrive with severe calorie malnutrition, decreased appetite and hypoalbuminemia. He also has complaints of odynophagia and dysphagia
with food sticking in upper esophagus at times. . His daughter is a toll service observer and recommended adding [employer] supplement that he has been taking past 2 weeks with 2-3 lb wt gain. He also was treated with another course of steroids and due to
change to Budesonide 9mg daily. He admit to nausea without vomiting but denies abdominal pain, or rectal bleeding. On admission patient note with pancytopenia with WBC 1.8, hbg 12.7 with drop to 10.7 platelets 52,000 with ANC 1.1, albumin 2.3.
Pt also noted with metabolic acidosis with Co2 13, BUN 41, creat 1.5 and calcium drop to 6.7 after admission. He was also admitted to 09/22-10-04 with electrolyte imbalance. No EGD at Last 06/2021- Day colonoscopy 3 mm polyp at appendiceal
orifice removed with cold forceps. bx TA.
10/20 obst series
No active cardiopulmonary disease.
No evidence of acute abdominal pathology.
moderate stool burden
-acute on chronic diarrhea
-multiple myeloma s/p stem cell transplant 2021 then chemo and CAR-T therapy in May
-neuro toxicity/onset of parkinson's port CAR-T therapy
-failure to thrive/wt loss/severe calorie malnutrition/hypoalbuminemia
-GERD
-metabolic acidosis and electrolyte imbalance
-pancytopenia with neutropenia
-electrolyte imbalance
-FAITH
-hypothermia
other med problems:
-PVC's
-palpations
-steroid induced DM
PLAN:
Etiology of diarrhea related to CAR-T therapy, infectious etiology(ruled out so far), underlying constipation with overflow with recent parkinson's and Imodium use(moderate stool on imaging overnight) vs other
stool completed 09/25 at [facility] note neg per family-- repeat with c-diff, Giardia/crypto/norovirus neg stool cx pending
fecal elastase pending, unable to do A1At stool testing
cont trial of Questran 1 dose given overnight with increased stool and rectal pouch in place--
if continued diarrhea can consider flex but currently borderline platelets and neutropenia unable to do til improved-- may need heme eval to assist
cont Budesonide 9mg daily was on OP wean but not improving
cont Pepcid BID
cont to correct acidosis and electrolyte imbalance per medical team -- still with persistent hypoglycemia/hypokalemia
appreciate dietary consult cont [employer] supplement 2 daily
s/p speech eval
remains on Acyclovir and Bactrim as prophylaxis
Pt scheduled GI follow up with Dr. Ratliff at end on October
Pt is scheduled with palliative care 11/02 vs consider IP eval with failure to thrive
reviewed with Dr. Chou -- cultures added with persistent hypothermia
Subjective
Subjective
Date of Service: October 21, 2024
10/20 delatorre mucoid stool with increased stool overnight and now rectal tube in place, IDDS 6 diet with supplements
Objective
Data Reviewed
Laboratory Data:
Laboratory Results
10/21/24 05:08
10/21/24 04:46
Laboratory Results
Phosphorus 2.6 mg/dl (2.5-4.5) 10/20/24 05:17
Magnesium 1.8 mg/dl (1.6-2.3) 10/21/24 04:46
Total Bilirubin 0.5 mg/dl (0.2-1.3) 10/20/24 05:17
AST 43 U/L (17-59) 10/20/24 05:17
ALT 11 U/L (0-50) 10/20/24 05:17
Alkaline Phosphatase 113 U/L (38-126) 10/20/24 05:17
Vital Signs and I&O:
Vital Signs
Temp Pulse Resp BP Pulse Ox
95.0 F L 81 9 136/90 99
10/21/24 04:00 10/21/24 07:00 10/21/24 07:00 10/21/24 07:00 10/21/24 07:00
I&O
10/20/24 10/21/24 10/22/24
06:59 06:59 06:59
Intake Total 600 / 600 1220 / 1220
Output Total 900 / 900
Balance 600 / 600 320 / 320
Physical Exam
Physical Exam
HEENT: Anicteric and Moist mucous membranes
Cardiology: Normal Sinus Rhythm
Pulmonary: Clear
GI: Soft and Non Tender
Extremities: Edema and Other (diffuse weakness )
Neuro: Non Focal
[2024-10-21] MEDS: KCL 40 MEQ PO (09:41)
[2024-10-21] MEDS: KCL 270 MEQ IV (11:39)
[2024-10-21 13:39] LABS: Glucose - Point of Care 138 mg/dl (70-99)
--- NOTE | 2024-10-21 15:47 | W.PN.HOSP.TC ---
Today's Communication/Plan
-
Assessment / Plan
Assessment / Plan
NAD, thin cachectic
Scleral Anicteric
MMM
No JVD
Chest port intact clean dry
CTABL
RRR, S1/S2
Soft, NT, ND, BS+
Warm, Dry
AAOx3
Calm
Acute on chronic diarrhea. 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 Continue IV fluids. GI following. Will consider scope if ANC improves.
Neutropenic with hypothermia, will initiate infectious workup provide IV antibiotics, may need to consult infectious diseases. Will consult hematology/oncology
Hypokalemia replete as needed
Hypocalcemic that corrects to 7.8 and asymptomatic. Will hold off on repletion
FAITH resolved
None anion gap metabolic acidosis secondary to GI losses in the setting of diarrhea. Low clinical suspicion for renal tubular acidosis if suspected will obtain a urine anion gap
Multiple myeloma pancytopenia continue prophylaxis with Bactrim acyclovir. Oncology consulted
Steroid-induced diabetes continue Accu-Chek sliding scale goal blood glucose 1 4020
Anticipated Discharge: > 48 hours
Subjective/Interval History
-
Date of Service: October 21, 2024
Seen and examined. Overnight hypothermic. Yesterday had multiple bowel movements. Nothing overnight or in the a.m.
Objective Data
-
Labs:
Laboratory Results
10/21/24 10/21/24
04:46 05:08
WBC Cancelled 1.9 L*
Hgb Cancelled 10.5 L
Hct Cancelled 31.0 L
Plt Count Cancelled 31 L D
Sodium 142
Potassium 3.1 L
Chloride 115 H
Carbon Dioxide 21 L
BUN 30 H
Creatinine 1.0
Glucose 112 H
Calcium 6.4 L*
Vital Signs:
Vital Signs
Temp Pulse Resp BP Pulse Ox
95.0 F L 81 9 136/90 99
10/21/24 04:00 10/21/24 07:00 10/21/24 07:00 10/21/24 07:00 10/21/24 07:00
I&O
10/20/24 10/21/24 10/22/24
06:59 06:59 06:59
Intake Total 600 / 600 1220 / 1220
Output Total 900 / 900
Balance 600 / 600 320 / 320
--- NOTE | 2024-10-21 16:46 | PHA.VAN.IN ---
Assessment
- Assessment
Renal Function: Appears elevated from baseline (10/06/24 BASELINE SCR: 0.7)
Concomitant Antimicrobials: BACTRIM, ACYCLOVIR
- Previous Dosing Experience
Previous Regimen: 1500MG IV X 1 PRE-OP
Date of Regimen: 06/04/23
Provided Trough of: UNKNOWN
Provided AUC of: UNKNOWN
AUC Dosing Plan
- Dosing Variables
Dosing Weight (kg): 81.9
Dosing CrCl (ml/min): 75
Vd coefficient (L/kg): 0.7
- Empiric Dosing
Initial / Loading Dose: 2GM
Maintenance Regimen: 1GM IV Q12H
Estimated AUC (mcg*h/mL): 541
Estimated Peak (mcg*h/mL): 31.7
Estimated Trough (mcg/ml): 15.2
Estimated Half Life (H): 10.4
Pharmacokinetics Vancomycin I
- -
Patient Age: 69
Patient Sex: Male
Vancomycin Day #: 1
Indication: Neutropenic Fever
Requesting Provider: LAURA CHRISTIE
Pertinent Antimicrobial Allergies:
Allergies
Cephalosporins Allergy (Verified 10/19/24 15:07)
Unknown
Penicillins Allergy (Verified 10/19/24 15:07)
via allergy testing
penicillin G Allergy (Verified 10/19/24 15:07)
via allergy testing
Height / Weight:
Height 6 ft
Actual Weight 81.9 kg
Pertinent Past Medical History: MULTIPLE MYELOMA
- Vital Signs / Lab Results
Temp Pulse Resp BP Pulse Ox
95.0 F L 81 9 136/90 99
10/21/24 04:00 10/21/24 07:00 10/21/24 07:00 10/21/24 07:00 10/21/24 07:00
Lab Results - Hematology
10/19/24 10/20/24 10/21/24
16:47 05:17 04:46
WBC 1.8 L* 2.6 L Cancelled
Band Neutrophils 13 H
10/21/24
05:08
WBC 1.9 L*
Band Neutrophils 8 H D
Lab Results - Chemistry
10/19/24 10/19/24 10/20/24
16:47 17:22 05:17
BUN Cancelled 41 H 40 H
Creatinine Cancelled 1.5 H 1.4 H
Estimated Creat Clear Cancelled 54
Albumin Cancelled 2.9 L 2.3 L
10/21/24
04:46
BUN 30 H
Creatinine 1.0
Estimated Creat Clear 75
Albumin
Microbiology Results
10/20/24 15:20 Salmonella/Shigella Culture - Preliminary
Feces/Stool Culture in Progress
Campylobacter Culture - Preliminary
Culture in Progress
Stool Leukocytes - Final
10/20/24 15:20 C. difficile GDH Antigen & Toxins - Final
Feces/Stool Negative for toxigenic C.difficile
- Final
Negative for Norovirus GI and GII.
10/20/24 15:20 Cryptosporidium/Giardia - Final
Feces/Stool Negative for Cryptosporidium and/or Giardia Lamblia
antigens.
[2024-10-21] MEDS: VANCOCIN 540 MG IV (17:04)
[2024-10-21 17:11] LABS: Glucose - Point of Care 157 mg/dl (70-99)
[2024-10-21] MEDS: NOVOLOG FLEXPEN-LOW RESISTANCE 1 UNITS SC (17:11)
[2024-10-21] MEDS: REMERON 7.5 MG PO (22:19)
[2024-10-21 23:19] LABS: Glucose - Point of Care 86 mg/dl (70-99)
[2024-10-22] VITALS (7 sets, daily range): BP systolic 68–118; BP diastolic 50–79; PULSE 86–91; O2SAT 98
[2024-10-22] MEDS: LR 1000 IV (05:46)
[2024-10-22] MEDS: VANCOCIN 200 IV (05:46)
[2024-10-22] MEDS: QUESTRAN 4 GRAM PO ×2 (05:46→17:17)
--- NOTE | 2024-10-22 06:15 | PTCARENOTE ---
Difficulty obtaining patient's temperature t/o shift. Instructed by LIDAR SCIENTIST to place christos hugger despite inability to obtain core temp (pt w/rectal pouch and neutropenic) and recheck temp. Pt removing christos hugger t/o shift. Last oral temp 94.5.
Rectal pouch changed, 900 mL liquid orange/delatorre stool. #[address] Pt w/periods of intermittent confusion. Contacted LIDAR SCIENTIST covering house requesting order for am labs. Awaiting orders at this time.
[2024-10-22 07:07] LABS: Glucose - Point of Care 142 mg/dl (70-99)
[2024-10-22 08:22] LABS: Hematocrit 32.8 % (39.0-52.0); Hemoglobin 10.7 g/dL (13.0-18.0); Mean Corp Hgb Conc. 32.6 g/dL (33.0-37.0); Mean Corpuscular Hgb 31.9 pg (27.0-31.0); Mean Corpuscular Volume 97.9 fL (80.0-94.0); Platelet Count 25 10^3/uL (130-400); Red Blood Cell Count 3.35 10^6/uL (4.70-6.10); Red Cell Dist. Width 17.2 % (11.5-14.5); White Blood Cell Count 1.7 10^3/uL (4.8-10.8)
--- NOTE | 2024-10-22 09:01 | CON.ONC ---
Impression
Impression
IgG Lambda multiple myeloma with unfavorable, high risk cytogenetics with most recent restaging Jun/Jul 2024 showing partial response
s/p CART May 2024 at [facility] c/b cytokine release syndrome, immune effector cell-associated neurotoxicity syndrome, and�hemophagocytic lymphohistiocytosis
acute on chronic diarrhea
FAITH
acute Pancytopenia worsening since early September 2024. No cytopenias noted on weekly August 2024 labs
Plan
Plan
GI to consider endoscopic evaluation
follow stool cultures and Blood cultures
post CART prophylaxis with Bactrim acyclovir
follow up ID consult
Consider CT CAP to evaluate for infection
neutropenic precautions
add cortisol to am labs, TSH normal
transfuse platelets <20,000, <50,000 if bleeding. Avoid nsaids, anticoagulants, and antiplatelets if platelets <50,000. Check DIC, B12, folate
Irradiated, CMV negative products for transfusions with Fludara exposure
Would consider transfer to [facility] for further evaluation of post CART complications - known to Dr. Abbasi
Patient History
History of Present Illness
69yo M with IgG Lambda multiple myeloma with unfavorable, high risk cytogenetics and with early disease progression after AutoPBSCT 2021 [address] is [address]. Flores and CART June 02, [address] Abbasi at [facility] now presents with acute on chronic
diarrhea. He did receive a course of prednisone to treat presumed immune mediated diarrhea and has been using Imodium prn without improvement. He usually has 4-5 BM daily, however, has increased to 8-9 BM daily. He denies any melena or BRBPR.
Initial evaluation notable for hypothermia, WBC 2.6, ANC 1300, Hgb 10.7, platelet 46,000, creatinine 1.4, calcium 6.7, normal TSH, normal LFTs. CXR with no evidence PNA. HIs C.diff, cryptosporidium/Giardia are negative. His Salmonella/shigella,
Campylobacter, Ecoli, and stool cultures are pending. Blood cultures are pending.
In brief, he was diagnosed in 2020, induced with RVD-D, and consolidated with Melphalan autologous PBSCT 03/14/2022. He received post transplant consolidation with RVD-D and maintenance with Fartun-Revlimid. He unfortunately had progression of disease
for which he was treated with 4th line therapy Fartun-Kd with inadequate response so was switched to 5th line therapy with KPd. He was bridged to CAR-T with HD Cytoxan and underwent CAR-T (carvyki) 06/02/2024 (lymphodepletion with Flu/Cy). Treatment
complicated by cytokine release syndrome, immune effector cell-associated neurotoxicity syndrome, and�hemophagocytic lymphohistiocytosis. His most recent bone marrow biopsy June 2024 showed a normocellular marrow, left shifted myeloid
maturation, very small population of monoclonal (lambda) plasma cells. July 2024 PET showed multifocal active skeletal lesions, including some new lesions in the left femur. His most significant disease is in the left iliac bone. However, in
comparison to his prior PET, there is a good response to therapy with overall lower tumor burden. His most recent CBC and CMP showed WBC 3.1, ANC 1700, ALC 1000, Hgb 12.7, platelet count 92,000, BUN 17, creatinine 0.72, Calcium 6.7, and normal
LFTs.
More recently, he developed Parkinsonian symptoms often requiring a wheelchair to get to medical appointments. He continues to work with PT/OT at home. He has been on Sinemet with neurology with some improvement in his facial expressions. He
reports intermittent confusion, poor appetite, and progressive weakness over the past 2 weeks which correlates to increased stool output. He denies fever, chills, cough, chest pain, palpitations, n/v, abdominal pain, or rashes.
Temp 91.2F on 10/20 improved to 97.2F this morning. No hypotension or hypoxia.
Past-Medical/Surgical History
PMH HTN, DM2, PVC
PSH finger surgery, lithotripsy, tonsillectomy, vasectomy
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
Family non-contributory
Patient Medication
�Medication �Instructions �Recorded �Confirmed �Last Taken �Type
cholecalciferol (vitamin D3) 25 25 mcg PO DAILY Supplement 08/25/24 10/19/24 10/19/24 History
mcg (1,000 unit) capsule (Vitamin
D3)
acyclovir 400 mg tablet 400 mg PO BID PROPHYLAXIS 10/02/24 10/19/24 10/19/24 History
calcium carbonate 600 mg PO MEALS Gastrointestinal 10/02/24 10/19/24 10/19/24 History
Issue
carbidopa 25 mg-levodopa 100 mg 1 tab PO TID@0700,1100,1700 10/02/24 10/19/24 10/19/24 History
tablet (Sinemet) Neurological Condition
cyanocobalamin (vitamin B-12) 1,000 mcg PO DAILY Supplement 10/02/24 10/19/24 10/19/24 History
1,000 mcg tablet
famotidine 20 mg tablet (Pepcid) 20 mg PO BID Gastrointestinal Issue 10/02/24 10/19/24 10/19/24 History
loperamide 2 mg capsule 2 mg PO Q2HPRN PRN diarrhea 10/02/24 10/19/24 10/05/24 History
mirtazapine 7.5 mg tablet 7.5 mg PO HS 10/02/24 10/19/24 10/18/24 History
potassium chloride 20 mEq 20 meq PO BID Electrolyte Repletion 10/02/24 10/19/24 10/19/24 History
tablet,extended
release(part/cryst) (Klor-Con M)
sulfamethoxazole 800 1 tab PO MOWEFR PROPHYLAXIS 10/02/24 10/19/24 10/19/24 History
mg-trimethoprim 160 mg tablet
(Bactrim DS)
acetaminophen 325 mg tablet 650 mg (2 x 325 mg) PO Q4HPRN PRN 10/04/24 10/19/24 Unknown Rx
mild pain/PÉREZ/temp> 100.4F #0 tabs
metoprolol succinate 25 mg 12.5 mg PO DAILY 10/19/24 10/19/24 10/19/24 History
tablet,extended release 24 hr
prednisone 20 mg tablet 40 mg PO DAILY 10/19/24 10/19/24 10/19/24 History
Active Medications
Generic Name Dose Route Start Last Admin
Trade Name Freq PRN Reason Stop Dose Admin
Acetaminophen 650 mg 10/19/24 22:41
Acetaminophen 325 Mg Tablet PO 11/16/24 22:40
Q4HPRN PRN
mild pain/PÉREZ/temp> 100.4F
Acyclovir Sodium 400 mg 10/20/24 08:00 10/21/24 20:07
Acyclovir Sodium 200 Mg Capsule PO 10/30/24 07:59 400 mg
BID CASSANDRA Administration
Budesonide 9 mg 10/20/24 09:00 10/21/24 09:21
Budesonide 3 Mg Capsule PO 11/17/24 08:59 9 mg
DAILY CASSANDRA Administration
Carbidopa/Levodopa 1 tablet 10/20/24 07:00 10/21/24 17:07
Carbidopa (25 Mg)/Levodopa (100 Mg) Regular Release Tablet PO 11/17/24 06:59 1 tablet
TID@0700,1100,1700 CASSANDRA Administration
Cholestyramine Resin 4 gram 10/20/24 06:00 10/22/24 05:46
Cholestyramine 4 Gram Packet PO 11/17/24 05:59 4 gram
BID@0600,1800 CASSANDRA Administration
Dextrose 12.5 grams 10/20/24 00:18
Dextrose 50% (0.5 Grams/Ml) 50 Ml Syringe IV 11/17/24 00:17
[id number] PRN
hypoglycemia
Protocol
Famotidine 20 mg 10/20/24 08:00 10/21/24 20:08
Famotidine 20 Mg Tablet PO 11/17/24 07:59 20 mg
BID CASSANDRA Administration
Glucagon 1 mg 10/20/24 00:18
Glucagon 1 Mg Vial IM 11/17/24 00:17
PRN PRN
hypoglycemia
Protocol
Vancomycin HCl 1 gram in 200 mls @ 200 mls/hr 10/22/24 06:00 10/22/24 05:46
Vancocin IV 200 mls
Q12H CASSANDRA Administration
Insulin Aspart 0 units 10/20/24 07:30 10/21/24 17:11
Insulin Aspart Low Resistance 300 Units/3 Ml Pen.Injctr SC 11/17/24 07:29 1 units
AC CASSANDRA Administration
Protocol
Loperamide HCl 2 mg 10/19/24 22:41
Loperamide 2 Mg Capsule PO 11/16/24 22:40
Q2HPRN PRN
diarrhea
Metoprolol Succinate 12.5 mg 10/20/24 08:00 10/21/24 09:19
Metoprolol 12.5 Mg Extended Release Dose (1/2 Of 25 Mg Xl Tablet) PO 11/17/24 07:59 12.5 mg
DAILY CASSANDRA Administration
Mirtazapine 7.5 mg 10/19/24 22:41 10/21/24 22:19
Mirtazapine 7.5 Mg Regular Release Tablet PO 11/16/24 22:40 7.5 mg
HS CASSANDRA Administration
Potassium Chloride 20 meq 10/20/24 08:00 10/21/24 20:08
Potassium Chloride 20 Meq Extended Release Tablet PO 11/17/24 07:59 20 meq
BID CASSANDRA Administration
Sodium Chloride 0 flush 10/19/24 23:00
Sodium Chloride 0.9% (Flush) Syringe IV 11/16/24 22:59
PER PROTOCOL CASSANDRA
Trimethoprim/Sulfamethoxazole 1 tablet 10/21/24 08:00 10/21/24 09:24
Sulfamethoxazole (800 Mg)/Trimethoprim (160 Mg) Tablet PO 01/11/25 08:01 1 tablet
MoWeFr@0800 CASSANDRA Administration
Physical Exam
-
General: No Apparent Distress, Appears Chronically Ill and Other (thin)
HEENT: Moist Mucous Membranes; Negative Jaundice
Cardiology: Normal Sinus Rhythm
Pulmonary: Clear
GI: Soft
Extremities: Pulses Present; Negative Edema
Skin: Warm
Psych: Calm
Labs
Lab Results
WBC 1.7 10^3/uL (4.8-10.8) L* 10/22/24 07:34
RBC 3.35 10^6/uL (4.70-6.10) L 10/22/24 07:34
Hgb 10.7 g/dL (13.0-18.0) L 10/22/24 07:34
Hct 32.8 % (39.0-52.0) L 10/22/24 07:34
MCV 97.9 fL (80.0-94.0) H 10/22/24 07:34
MCH 31.9 pg (27.0-31.0) H 10/22/24 07:34
MCHC 32.6 g/dL (33.0-37.0) L 10/22/24 07:34
RDW 17.2 % (11.5-14.5) H 10/22/24 07:34
Plt Count 25 10^3/uL (130-400) L* 10/22/24 07:34
MPV Not Reportable 10/22/24 07:34
Abs Immat Gran (auto) Cancelled 10/21/24 04:46
Absolute Neuts (auto) Cancelled 10/21/24 04:46
Absolute Lymphs (auto) Cancelled 10/21/24 04:46
Absolute Monos (auto) Cancelled 10/21/24 04:46
Absolute Eos (auto) Cancelled 10/21/24 04:46
Absolute Basos (auto) Cancelled 10/21/24 04:46
Immature Gran % Cancelled 10/21/24 04:46
Neutrophils % Cancelled 10/21/24 04:46
Lymphocytes % Cancelled 10/21/24 04:46
Monocytes % Cancelled 10/21/24 04:46
Eosinophils % Cancelled 10/21/24 04:46
Basophils % Cancelled 10/21/24 04:46
Creatinine 1.0 mg/dL (0.7-1.3) 10/21/24 04:46
Vital Signs
Vital Signs
Temp Pulse Resp BP Pulse Ox
97.2 F 90 18 118/79 97
10/22/24 07:51 10/22/24 07:51 10/22/24 07:51 10/22/24 07:51 10/22/24 07:51
--- NOTE | 2024-10-22 09:08 | W.PN.GI.CBS2 ---
Today's Communication / Plan
-
Await input from heme/onc. Worsening counts today and hypothermia. Diarrhea continues. Will consider SC Octreotide pending input from heme/onc
Assessment / Plan
-
Pt is a 69yo with hx multiple myeloma in remission with hx prior stem cell transplant in 2021 then chemo in April with CAR-T therapy in 05/2024, steroid induced DM, palpitation, PVC's, neuropathy with acute on chronic diarrhea. In review with
patient developed neurotoxicity with CAR-T therapy with confusion and hallucination and needed course of steroids in May. 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 Since May he has also had diarrhea
with worsening symptoms about 4-7 stools daily not improved with steroids or Imodium , 50 lb wt loss, failure to thrive with severe calorie malnutrition, decreased appetite and hypoalbuminemia. He also has complaints of odynophagia and dysphagia
with food sticking in upper esophagus at times. . His daughter is a [employer] bookkeeper and recommended adding [employer] supplement that he has been taking past 2 weeks with 2-3 lb wt gain. He also was treated with another course of steroids and due to
change to Budesonide 9mg daily. He admit to nausea without vomiting but denies abdominal pain, or rectal bleeding. On admission patient note with pancytopenia with WBC 1.8, hbg 12.7 with drop to 10.7 platelets 52,000 with ANC 1.1, albumin 2.3.
Pt also noted with metabolic acidosis with Co2 13, BUN 41, creat 1.5 and calcium drop to 6.7 after admission. He was also admitted to 09/22-10-04 with electrolyte imbalance. No EGD at Last 06/2021- Day colonoscopy 3 mm polyp at appendiceal
orifice removed with cold forceps. bx TA.
10/20 obst series
No active cardiopulmonary disease.
No evidence of acute abdominal pathology.
moderate stool burden
Ongoing diarrhea, acidosis, hypothermia, metabolic derangements, neutropenia and thrombocytopenia. Unclear what the driving force is here. Agree may need endoscopic evaluation, however, unable to proceed for now given electrolytes and platelets and
WBC count. Questran does increased.
Will await result of stool studies. Unfortunately, spoke to lab and unable to check A1AT in stool. Pending results, will send more comprehensive panel.
Infectious workup, severely immunocompromised but is receiving prophylaxis
Heme/onc consult, will discuss a trial of SC Octreotide TID
Consider inpatient palliative consult, depending on workup
Subjective
Subjective
Date of Service: October 22, 2024
Patient hypothermic overnight, T 94.5. He had ~900 ml of stool output in rectal pouch overnight.
Objective
Data Reviewed
Laboratory Data:
Laboratory Results
10/22/24 07:34
Laboratory Results
Phosphorus 2.6 mg/dl (2.5-4.5) 10/20/24 05:17
Magnesium 1.8 mg/dl (1.6-2.3) 10/21/24 04:46
Total Bilirubin 0.5 mg/dl (0.2-1.3) 10/20/24 05:17
AST 43 U/L (17-59) 10/20/24 05:17
ALT 11 U/L (0-50) 10/20/24 05:17
Alkaline Phosphatase 113 U/L (38-126) 10/20/24 05:17
Vital Signs and I&O:
Vital Signs
Temp Pulse Resp BP Pulse Ox
97.2 F 90 18 118/79 97
10/22/24 07:51 10/22/24 07:51 10/22/24 07:51 10/22/24 07:51 10/22/24 07:51
I&O
10/21/24 10/22/24 10/23/24
06:59 06:59 06:59
Intake Total 1220 / 1220 4010 / 4010
Output Total 900 / 900 2450 / 2450
Balance 320 / 320 1560 / 1560
Physical Exam
Physical Exam
HEENT: Anicteric and Moist mucous membranes
Cardiology: Normal Sinus Rhythm
Pulmonary: Clear
GI: Soft and Non Tender
Extremities: Edema and Other (diffuse weakness )
Neuro: Non Focal
[2024-10-22 09:14] LABS: ALT (SGPT) 18 U/L (0-50); AST (SGOT) 49 U/L (17-59); Albumin 2.1 g/dl (3.5-5.0); Alkaline Phosphatase 128 U/L (38-126); Blood Urea Nitrogen 17 mg/dl (9-20); Carbon Dioxide 20 mmol/L (22-30); Chloride 117 mmol/L (98-107); Estimated Creatinine Clearance 108 ml/min; Glucose 134 mg/dl (70-99); Magnesium 1.6 mg/dl (1.6-2.3); Potassium 3.1 mmol/L (3.5-5.1); Sodium 143 mmol/L (135-145); Total Bilirubin 0.6 mg/dl (0.2-1.3); Total Protein 3.4 g/dl (6.3-8.2); eGFR > 60.00
[2024-10-22] MEDS: KCL 20 MEQ PO ×2 (09:25→21:15)
[2024-10-22] MEDS: ENTOCORT EC 9 MG PO (09:25)
[2024-10-22] MEDS: ZOVIRAX 400 MG PO ×2 (09:25→21:14)
[2024-10-22] MEDS: NOVOLOG FLEXPEN-LOW RESISTANCE SC ×2 (09:25→11:35)
[2024-10-22] MEDS: PEPCID 20 MG PO ×2 (09:25→21:15)
[2024-10-22] MEDS: TOPROL XL 12.5 MG PO (09:26)
[2024-10-22] MEDS: SINEMET 25-100 1 TABLET PO ×3 (09:28→17:16)
[2024-10-22] MEDS: KCL 270 MEQ IV (10:05)
--- NOTE | 2024-10-22 10:25 | PHA.VAN.FU ---
Vancomycin Assessment / Plan
- Assessment
Renal Function: SCR Decreasing
WBC's are: Trending Down
Neutropenia: ANC = 500 (10/21)
In the past 24 hrs, patient has been: Hypothermic
- Dosing Plan
Adjust Regimen to: Vanc 1250mg Q12H starting at 1800 for decreasing SCR
New Regimen Predicts: AUC (496), Peak (32.2), Trough (12)
- Monitoring Plan
No level(s) ordered at this time: consider levels in next few days
MRSA Screen: Ordered per protocol
- Follow Up
Pharmacy will continue to follow.
Vancomycin Follow UP
- -
Patient Age: 69
Patient Sex: Male
Vancomycin Day #: 2
Indication: Neutropenic Fever
Requesting Provider: Dr. Keri Chou
Pertinent Antimicrobial Allergies:
Cephalosporins - Unknown
Penicillins - via allergy testing
Height / Weight:
Height 6 ft
Actual Weight 81.9 kg
Pertinent Past Medical History: multiple myeloma (HSCT 2021)
- Vital Signs / Lab Results
Temp Pulse Resp BP Pulse Ox
97.2 F 90 18 118/79 97
10/22/24 07:51 10/22/24 07:51 10/22/24 07:51 10/22/24 07:51 10/22/24 07:51
Lab Results - Hematology
10/19/24 10/20/24 10/21/24
16:47 05:17 04:46
WBC 1.8 L* 2.6 L Cancelled
Band Neutrophils 13 H
10/21/24 10/22/24
05:08 07:34
WBC 1.9 L* 1.7 L*
Band Neutrophils 8 H D
Lab Results - Chemistry
10/19/24 10/19/24 10/20/24
16:47 17:22 05:17
BUN Cancelled 41 H 40 H
Creatinine Cancelled 1.5 H 1.4 H
Estimated Creat Clear Cancelled 54
Albumin Cancelled 2.9 L 2.3 L
10/21/24 10/22/24
04:46 07:34
BUN 30 H 17
Creatinine 1.0 0.7
Estimated Creat Clear 75 108
Albumin 2.1 L
Microbiology Results
10/22/24 08:22 Nasal Screen MRSA (PCR) - Final
Nose MRSA not detected - performed by PCR methodology.
10/20/24 15:20 Salmonella/Shigella Culture - Preliminary
Feces/Stool Culture in Progress
Campylobacter Culture - Preliminary
Culture in Progress
Stool Leukocytes - Final
10/20/24 15:20 C. difficile GDH Antigen & Toxins - Final
Feces/Stool Negative for toxigenic C.difficile
- Final
Negative for Norovirus GI and GII.
10/20/24 15:20 Cryptosporidium/Giardia - Final
Feces/Stool Negative for Cryptosporidium and/or Giardia Lamblia
antigens.
--- NOTE | 2024-10-22 10:57 | CM ---
Chart reviewed for d/c planning. Pt is being recommended for skilled rehab at this time.
CM spoke w/ pt's spouse regarding this. Pt states rehab is probably not feasible for pt at this time as his condition and treatment has to be managed. Spouse stated she spoke w/ hospitalist this morning and there is a potential plan for pt to be
transferred to [place] as his oncology team will be able to better manage him. Spouse stated oncology still has to see him but states if physicians recommend transfer she will support this. Spouse stated she has already spoken w/ a nurse navigator
at [place].
Plan: CM will cont to follow hospital course
[2024-10-22 11:12] LABS: Glucose - Point of Care 135 mg/dl (70-99)
[2024-10-22 11:33] LABS: Cortisol, Random 29.6 ug/dl
--- NOTE | 2024-10-22 12:06 | W.PN.HOSP.TC ---
Today's Communication/Plan
-
Assessment / Plan
Assessment / Plan
NAD, thin cachectic
Scleral Anicteric
MMM
No JVD
Chest port intact clean dry
CTABL
RRR, S1/S2
Soft, NT, ND, BS+
Warm, Dry
AAOx3
Calm
Sepsis, neutropenic/follow-up blood cultures follow-up stool culture on vancomycin pharmacy dosed, levofloxacin, QTc 473
Acute on chronic diarrhea. 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 C. difficile negative. Norovirus negative. Campylobacter/Giardia negative. Stool cultures pending. Continue IV fluids. GI following. Will consider scope if ANC improves.
Hypokalemia replete as needed
Hypocalcemic that corrects to 7.8 and asymptomatic. Will hold off on repletion
FAITH resolved
None anion gap metabolic acidosis secondary to GI losses in the setting of diarrhea. Low clinical suspicion for renal tubular acidosis if suspected will obtain a urine anion gap
Multiple myeloma pancytopenia continue prophylaxis with Bactrim acyclovir. Oncology consulted
Steroid-induced diabetes continue Accu-Chek sliding scale goal blood glucose 1 4020
Plan to transfer to [facility] under hospitalist service excepting Dr. Casillas
Anticipated Discharge: Today
Subjective/Interval History
-
Date of Service: October 22, 2024
Seen and examined. No new complaints. No acute overnight events.
Objective Data
-
Labs:
Laboratory Results
10/22/24
07:34
WBC 1.7 L*
Hgb 10.7 L
Hct 32.8 L
Plt Count 25 L*
Sodium 143
Potassium 3.1 L
Chloride 117 H
Carbon Dioxide 20 L
BUN 17
Creatinine 0.7
Glucose 134 H
Calcium 6.0 L*
Total Bilirubin 0.6
AST 49
ALT 18
Alkaline Phosphatase 128 H
Vital Signs:
Vital Signs
Temp Pulse Resp BP Pulse Ox
97.3 F 90 18 114/79 98
10/22/24 11:32 10/22/24 11:32 10/22/24 11:32 10/22/24 11:32 10/22/24 11:32
I&O
10/21/24 10/22/24 10/23/24
06:59 06:59 06:59
Intake Total 1220 / 1220 4010 / 4010
Output Total 900 / 900 2450 / 2450
Balance 320 / 320 1560 / 1560
--- NOTE | 2024-10-22 12:12 | W.DCSUMMARY ---
Addendum entered and electronically signed by Sudhir Chou MD 10/22/24 16:45:
sepsis was not presentg on admit
Moderate Protein Calorie Malnutrition
Sacrum, MASD
Original Note:
Discharge Summary
Discharge Data
Date of Admission: 10/19/24
Date of Discharge: 10/22/24
-
Pending Results: Yes
Additional Pending Results:
stool culture
Hospital Course
69 male history of multiple myeloma s/p stem cell transplant and CAR-T therapy that was complicated by neurotoxicity requiring steroids then developed steroid-induced DM and steroid-induced myopathy, neuropathy presented with acute on chronic
diarrhea. Has remained pancytopenic with ANC of 0.5. Hypothermic. Initiated on vancomycin and levofloxacin. Blood cultures pending. C. difficile negative. Norovirus negative. Campylobacter jejuni negative. Giardia negative. Stool culture
pending. 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
Discharge Plan
-
Patient Disposition: Acute Care Hospital
Condition: Fair
Discharge Orders:
Discharge Patient (As Directed); Ordered 10/22/24
Ordered By: Sudhir Chou
Discharge Date and Time
Print Language: DIVEHI
--- NOTE | 2024-10-22 13:39 | PN.CDI ---
CDI
- -
CDI:
Physician Documentation Request
Admit Date: 10/19/24 22:40
Dear Doctor José Antonio,
Clinical Indicators:
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
10/22 PN, 'Sepsis, neutropenic'
WBC on admission:
10/19/24
16:47
WBC 1.8 L*
Temp on admission:
10/20/24
00:00
Temp 91.2 F L
Please clarify the following:
Sepsis was present on admission
Sepsis was not present on admission
Unable to determine
Use of terms such as suspected, likely, concern for, or probable (associated with a specific diagnosis that is being evaluated, monitored, or treated as if it exists) are acceptable and can be coded in the inpatient setting, when documented at the
time of discharge.
Thank you,
Debbie Early RN BSN
CDI Specialist
available via tiger text
Please use your independent medical judgment in providing your response.
[2024-10-22] MEDS: LEVAQUIN 100 IV (13:49)
--- NOTE | 2024-10-22 14:42 | PN.CDI ---
CDI
- -
CDI:
Physician Documentation Request
Admit Date: 10/19/24 22:40
Dear Doctor José Antonio,
Clinical Indicators:
Patient admitted with acute on chronic diarrhea.
10/20 RN skin/wound assessment: Sacrum Stage 2 Pressure Injury, POA
'Patient's spouse states, 'He has had a stage 2 on his sacral crease that I have been taking care of.' '
Treatment: Silicone border foam dressing per protocol
Physician documentation of the type and location of wounds is required for compliant documentation. Based on the above clinical findings and your assessment, please provide the following in your progress note:
1. Location of the ulcer/wound, including laterality.
2. Type (etiology) of ulcer/wound:
- Pressure (decubitus) ulcer
- Other
- Unable to determine
3. If a pressure ulcer, please also include the stage* of the ulcer:
- Stage 1 - Skin intact, non-blanchable redness
- Stage 2 - Partial thickness loss of dermis, includes intact or open blister
- Stage 3 - Full thickness tissue not including bone, tendon or muscle
- Stage 4 - Full thickness tissue loss, including exposed bone, tendon or muscle
- Unstageable - Full thickness loss in which the base of the ulcer is covered by slough (yellow, delatorre, ridley, green or brown) and/or eschar (delatorre, brown or black) in the wound bed.
- Unable to determine
Use of terms such as suspected, likely, concern for, or probable (associated with a specific diagnosis that is being evaluated, monitored, or treated as if it exists) are acceptable and can be coded in the inpatient setting, when documented at the
time of discharge.
Thank you,
Debbie Early RN BSN
CDI Specialist
available via tiger text
Please use your independent medical judgment in providing your response.
*Source: National Pressure Ulcer Advisory Panel (NPUAP)
[2024-10-22] MEDS: SOLU-CORTEF 200 MG IV (15:25)
--- NOTE | 2024-10-22 15:42 | CON.ID ---
Consultation
-
Date/Time Consultation Requested: 10/22/2024 0835
Date/Time Consultation Performed: 10/22/2024 1532
Requesting Provider: Dr. Chou
Performing Provider: Dr. Cedeno
Reason for Consultation: Hypothermia, encephalopathy
Chief Complaint / Past History
History of Present Illness
Shon Iverson is a 69-year-old man with a significant past medical history of multiple myeloma, with history of CAR-T therapy being evaluated at the request of Dr. Chou in regards to diarrhea and hypothermia. History is obtained from chart
review, along with patient interview, although patient was not able to provide significant amount of history
The patient was first diagnosed in 2020, and underwent bone marrow transplant 222. 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
histiocytosis. Additionally, he has developed ongoing diarrhea which is been followed at [facility].
The patient presents to [facility] on 10/19 following his noting that he has become more confused and with suspected dehydration. He has been using Imodium, and more recently budesonide and attempt to control the diarrhea, without
apparent effect. He notes that the diarrhea is up to 8 times a day and watery. He denies any fevers. He does note decreased appetite.
In the ER he was noted to have hypothermia, which improved with a Dottie hugger. Currently he feels fatigued,, but denies specific pain.
Past History
Additional Past Medical History:
Multiple myeloma (stem cell transplant 2021, CAR-T 2023)
-CAR-T induced neurotoxicity
Steroid-induced myopathy
HTN
DM
Parkinson's disease
Additional Past Surgical History:
Tonsillectomy
Lithotripsy
Vasectomy
Allergy History:
Cephalosporins Allergy (Verified 10/22/24 10:47)
Unknown
ondansetron [From Zofran] Allergy (Verified 10/19/24 15:07)
confusion
penicillin G Allergy (Verified 10/19/24 15:07)
via allergy testing
Penicillins Allergy (Verified 10/19/24 15:07)
via allergy testing
Medications Reviewed: Yes
Current Antibiotics:
Vancomycin
Levofloxacin 500 mg IV every 24 hours
Bactrim, acyclovir prophylaxis
Social History
Tobacco: Non-Smoker
Alcohol: None
Personal:
Living: With Family
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
Family History
Family History: Not Pertinent
Review of Systems
Vital Signs
Temp Pulse Resp BP Pulse Ox
97.4 F 90 17 103/71 99
10/22/24 15:24 10/22/24 15:24 10/22/24 15:24 10/22/24 15:24 10/22/24 15:24
Physical Exam
Physical Exam
Constitutional: No Acute Distress, Comfortable, Chronically Ill and Non-toxic
Head: Normocephalic
Eyes: Pupils Equal, Pupils Round, No Conjunctival Hemorrhage and Sclera Anicteric
Oral: No Thrush and No Ulcers
Cardiovascular: Regular Rate and S1/S2; Negative S3/S4
Pulmonary: Clear; Negative Wheezes, Rales or Rhonchi
Gastrointestinal: Soft, Non Tender and Non Distended
Genito-Urinary: CVA Tenderness (right side)
Extremities: Edema; Negative Cyanosis or Erythema
Skin: Warm and Dry; Negative Rash or Jaundice
Neurological: Awake and Alert
Psychological: Calm
Lab / Diagnostic Study Results
10/22/24 07:34
10/22/24 07:34
Abs Immat Gran (auto) Cancelled 10/21/24 04:46
Absolute Neuts (auto) Cancelled 10/21/24 04:46
Absolute Lymphs (auto) Cancelled 10/21/24 04:46
Absolute Monos (auto) Cancelled 10/21/24 04:46
Absolute Basos (auto) Cancelled 10/21/24 04:46
Total Counted 100 10/21/24 05:08
Immature Gran % Cancelled 10/21/24 04:46
Neutrophils % Cancelled 10/21/24 04:46
Lymphocytes % Cancelled 10/21/24 04:46
Monocytes % Cancelled 10/21/24 04:46
Eosinophils % Cancelled 10/21/24 04:46
Basophils % Cancelled 10/21/24 04:46
Abs Neuts (Manual) 0.5 10^3/uL (1.4-6.5) L* 10/21/24 05:08
Segmented Neutrophils 23 % (42-75) L 10/21/24 05:08
Band Neutrophils 8 % (0-3) H D 10/21/24 05:08
Lymphocytes (Manual) 52 % (20-51) H 10/21/24 05:08
Microbiology Results
Micro:
10/20/24 15:20 Salmonella/Shigella Culture - Preliminary
Feces/Stool Culture in Progress
Campylobacter Culture - Final
No Campylobacter species isolated.
Shiga Toxin Test - Final
No E. coli Shiga Toxin 1 or 2 detected.
Stool Leukocytes - Final
10/22/24 08:22 Nasal Screen MRSA (PCR) - Final
Nose MRSA not detected - performed by PCR methodology.
10/21/24 17:01 Blood Culture - Pending
Blood/Venous
10/21/24 16:09 Blood Culture - Pending
Blood/Venous
10/20/24 15:20 C. difficile GDH Antigen & Toxins - Final
Feces/Stool Negative for toxigenic C.difficile
- Final
Negative for Norovirus GI and GII.
10/20/24 15:20 Cryptosporidium/Giardia - Final
Feces/Stool Negative for Cryptosporidium and/or Giardia Lamblia
antigens.
Imaging:
X-ray (obstruction series with CXR) : No active cardiopulmonary disease. No evidence of acute abdominal pathology.
Assessment / Plan
Diarrhea; ongoing
-No infectious etiology discovered thus far despite extensive workup
Hypothermia; improved. No fevers.
Leukopenia; pancytopenia
- ANC ~500
FAITH; improved
Multiple myeloma; Hx SCT; recent CAR-T therapy
Steroid-induced myopathy
HTN
DM
Parkinson's disease
Recommendations:
Cultures negative thus far.
Given depressed ANC, Continue with empiric Levaquin for now. Can transition to oral therapy.
Discontinue further vancomycin for now. Can restart should resistant organisms recovered.
Continue with prophylactic acyclovir and Bactrim.
Patient has been accepted for transfer back to [facility] pending bed availability.
Care Review
Plan reviewed with: Physician (Hospitalist)
[2024-10-22 16:47] LABS: Glucose - Point of Care 153 mg/dl (70-99)
[2024-10-22] MEDS: NOVOLOG FLEXPEN-LOW RESISTANCE 1 UNITS SC (17:16)
[2024-10-22] MEDS: REMERON 7.5 MG PO (21:14)
[2024-10-22] MEDS: GRANIX 480 MCG SC (21:15)
--- NOTE | 2024-10-22 21:48 | W.PN.UPDATE ---
Update Note
Progress Note Update
Medical Necessity form filled, consent to transfer received from Marianne Iverson via telephone. Patient to be transferred to [facility] via ambulance
--- NOTE | 2024-10-22 22:15 | PTCARENOTE ---
Report called to Marlene GALVEZ at [phone]. [facility] to transport via stretcher. Pt transported with all personal belongings.
== END 2024-10-22 22:20 | disposition short-term general hospital (02) | DRG 814 ==
LOC: 3 WEST ACU 22:40
PROVIDERS: Nurse Practitioner Adult Health; Nurse Practitioner Family; Nurse Practitioner Gerontology; Registered Nurse; ADMITTING PHYSICIAN Hospitalist; ATTENDING PHYSICIAN Hospitalist; CONSULT PHYSICIAN Internal Medicine Infectious Disease; EMERGENCY PHYSICIAN Emergency Medicine; FAMILY PHYSICIAN Family Medicine; OTHER PHYSICIAN Internal Medicine; OTHER PHYSICIAN Internal Medicine Hematology & Oncology
DX: T80 Complications following infusion, transfusion and therapeutic injection (principal); A41.9 Sepsis, unspecified organism; K52.1 Toxic gastroenteritis and colitis; C90.01 Multiple myeloma in remission; D61.818 Other pancytopenia; E87.20 Acidosis, unspecified; N17.9 Acute kidney failure, unspecified; Z94.84 Stem cells transplant status; E44.0 Moderate protein-calorie malnutrition; G72.0 Drug-induced myopathy; E09.42 Drug or chemical induced diabetes mellitus with neurological complications with diabetic polyneuropathy; T38.0X5A Adverse effect of glucocorticoids and synthetic analogues, initial encounter; G20.A1 Parkinson's disease without dyskinesia, without mention of fluctuations; I10 Essential (primary) hypertension; I49.3 Ventricular premature depolarization; R68.0 Hypothermia, not associated with low environmental temperature; E87.6 Hypokalemia; E83.51 Hypocalcemia; F17.290 Nicotine dependence, other tobacco product, uncomplicated; R62.7 Adult failure to thrive; Z68.24 Body mass index [BMI] 24.0-24.9, adult; Z88.0 Allergy status to penicillin; Z88.1 Allergy status to other antibiotic agents; Z79.899 Other long term (current) drug therapy; Z79.52 Long term (current) use of systemic steroids
CPT/HCPCS: 74022; 80048; 80053; 82248; 82533; 82653; 82962; 83036; 83735; 84100; 84443; 85025; 85027; 87040; 87045; 87046; 87077; 87324; 87328; 87329; 87427; 87449; 87641; 87798; 89055; 92526; 92610; 96360; 97163; 97530; 97535; 99285; J1447; J7030